=== PATIENT | male | born 1945 | race Caucasian/White ===

== ENCOUNTER → 2017-05-11 | Outpatient (CLI) | payer MEDICARE ==
--- NOTE | 2017-05-11 17:07 | Diagnostic Imaging Report ---
INDICATION: Asthma exacerbation. FINDINGS: The lung volumes are symmetric and unremarkable. No airway thickening or obvious bronchiectasis. No pneumonia, failure, effusion, or pneumothorax. IMPRESSION: No acute-appearing abnormality. Dictated by: Dictated on workstation # [id number]
== END ==
LOC: RAD 15:52
PROVIDERS: ATTEND Nurse Practitioner Family
DX: J45.21 Mild intermittent asthma with (acute) exacerbation (principal)
CPT/HCPCS: 71046

== ENCOUNTER → 2017-06-23 | Outpatient (CLI) | payer MEDICARE ==
--- NOTE | 2017-06-23 15:55 | Diagnostic Imaging Report ---
PROCEDURE: CT chest without contrast. TECHNIQUE: Multiple contiguous axial images were obtained through the chest without the use of intravenous contrast. INDICATION: Cough and wheezing and sputum production. COMPARISON: Correlation is made with chest radiograph from 05/11/2017. No prior CT chest is available for comparison. FINDINGS: No axillary lymphadenopathy is seen. Mildly prominent lymph nodes in the mediastinum are noted. A right paratracheal node measures 10 mm short axis. There is also prominent node in the subcarinal location with short axis measurement of 11 mm. No pericardial or pleural fluid is detected. Coronary arterial calcifications are present. Parenchymal evaluation does show the central airways to be patent. There are tree in bud opacities identified in the posterior aspect of the right upper lobe as well as a large portion of the right lower lobe. There appears to be minimal involvement of the superior segment of the left lower lobe as well as more inferiorly in the posterior left lower lobe. The upper abdomen is without evidence of adrenal mass. There are two cysts in the region of the pancreatic tail, largest 21 mm in diameter. IMPRESSION: 1. Bilateral tree in bud opacities, greatest on the right, likely on an infectious/inflammatory basis. Mildly prominent lymph nodes in the mediastinum are present as well which may be reactive. Followup after course of therapy could be performed to confirm resolution. 2. Pancreatic tail cyst. Dictated by: Dictated on workstation # [id number]
== END ==
LOC: RAD 11:25
PROVIDERS: ATTEND Family Medicine
DX: R91.8 Other nonspecific abnormal finding of lung field (principal); R59.0 Localized enlarged lymph nodes; K86.2 Cyst of pancreas
CPT/HCPCS: 71250

== ENCOUNTER 2017-07-02 20:57 | Inpatient (IN) | payer MEDICARE ==
[~2017-07-02] VITALS: Ht 185.4 cm; Wt 110.7 kg
[2017-07-02] MEDS ORDERED: RT-ALBUTEROL SULF 2.5 MG/3 ML PRE-MIX VIAL INH STA ×3 (21:02→21:45)
[2017-07-02] MEDS ORDERED: RT-ALBUTEROL/IPRATROPIUM 3 ML (DUONEB) VIAL INH ONE ×2 (21:15→21:45)
[2017-07-02 21:18] LABS: BASOPHILS # (AUTO) 0.1 10^3/uL (0.0-0.1); BASOPHILS % (AUTO) 0 % (0-10); EOSINOPHILS # (AUTO) 0.8 10^3/uL (0.0-0.3); EOSINOPHILS % (AUTO) 7 % (0-10); HEMATOCRIT 42 % (40-54); HEMOGLOBIN 14.2 G/DL (13.3-17.7); LYMPHOCYTES % (AUTO) 18 % (12-44); MEAN CORPUSCULAR HEMOGLOBIN 36 PG (25-34); MEAN CORPUSCULAR HGB CONC 34 G/DL (32-36); MEAN CORPUSCULAR VOLUME 105 FL (80-99); MEAN PLATELET VOLUME 10.5 FL (7.4-10.4); MONOCYTES # (AUTO) 0.9 X 10^3 (0.0-1.0); MONOCYTES % (AUTO) 8 % (0-12); NEUTROPHILS # (AUTO) 7.5 X 10^3 (1.8-7.8); NEUTROPHILS % (AUTO) 68 % (42-75); PLATELET COUNT 236 10^3/uL (130-400); RED BLOOD COUNT 3.95 10^6/uL (4.35-5.85); RED CELL DISTRIBUTION WIDTH 12.2 % (10.0-14.5); WHITE BLOOD COUNT 11.2 10^3/uL (4.3-11.0)
--- NOTE | 2017-07-02 21:21 | ED Respiratory ---
General Chief Complaint: Respiratory Problems Stated Complaint: CHEST PAIN Nursing Triage Note: PT PRESENTS TO ER WITH COMPLAINT OF SOA. STATES HE HAS BEEN HAVING BREATHING ISSUES FOR THE LAST TWO MONTHS, BUT HIS SOA WORSENED TONIGHT. STATES HE LAST TOOK A BREATHING TREATMENT AT 2PM Source: patient, family Exam Limitations: no limitations History of Present Illness Date Seen by Provider: Jul 02, 2017 Time Seen by Provider: 20:58 Initial Comments Here with complaint of shortness of air. States he's been having this problem for the last 2 months. Has been followed with Dr. Zee. He did take it treatment earlier today but the breathing is much worse. Had CT scan last week but is not sure what the results were. Denies nausea vomiting. Denies chest pain. States the breathing problem is worse today than it's ever been. Typically on oxygen but is noted to have low O2 saturation of 88 percent on room air on arrival. Worsens with any activity and better with rest. Timing/Duration: getting worse Severity: moderate, severe Prior Episodes/Possible Cause: occasional episodes Modifying Factors: Worse With Activity, Improves With Albuterol Nebulizer, Improves With Oxygen, Improves With Rest Associated Symptoms: No chest pain/soreness, cough, No fever/chills, No nasal congestion, shortness of breath, wheezing Allergies and Home Medications Allergies Coded Allergies: Penicillins (Verified Allergy, Unknown, 07/02/17) Patient Home Medication List Home Medication List Reviewed: Yes Constitutional: see HPI, No chills, No fever EENTM: No nose congestion, No throat pain Respiratory: cough, dyspnea on exertion, short of breath, wheezing Cardiovascular: No chest pain, No edema, No palpitations Gastrointestinal: No abdominal pain, loss of appetite, No nausea, No vomiting Genitourinary: no symptoms reported Musculoskeletal: no symptoms reported Skin: no symptoms reported Psychiatric/Neurological: No Symptoms Reported All Other Systems Reviewed Negative Unless Noted: Yes Past Owomyqp-Cidblc-Rwbegm Hx Patient Social History Alcohol Use: Denies Use Recreational Drug Use: No Smoking Status: Never a Smoker Recent Foreign Travel: No Contact w/Someone Who Travel: No Recent Infectious Disease Expo: No Recent Hopitalizations: No Immunizations Up To Date PED Vaccines UTD: Yes Seasonal Allergies Seasonal Allergies: No Surgeries History of Surgeries: Yes (DETACHED RETINA) Respiratory History of Respiratory Disorde: Yes Cardiovascular History of Cardiac Disorders: No Neurological History of Neurological Disord: No Genitourinary History of Genitourinary Disor: No Gastrointestinal History of Gastrointestinal Di: No Musculoskeletal History of Musculoskeletal Dis: No Endocrine History of Endocrine Disorders: No HEENT History of HEENT Disorders: Yes Cancer History of Cancer: No Psychosocial History of Psychiatric Problem: No Blood Transfusions History of Blood Disorders: No Reviewed Nursing Assessment Reviewed/Agree w Nursing PMH: Yes Family Medical History Significant Family History: No Pertinent Family Hx Physical Exam Vital Signs Vital Signs - First Documented 07/02/17 20:59 Temp 99.5 Pulse 103 Resp 20 B/P (MAP) 176/95 (122) Pulse Ox 89 O2 Delivery Room Air O2 Flow Rate 2.00 Capillary Refill : Less Than 3 Seconds General Appearance: WD/WN, no apparent distress HEENT: PERRL/EOMI, pharynx normal Neck: full range of motion, supple Respiratory: respiratory distress, accessory muscle use, wheezing, expiration, inspiration Cardiovascular: no murmur, tachycardia Gastrointestinal: non tender, soft Extremities: non-tender, normal inspection Neurologic/Psychiatric: alert, oriented x 3 Skin: normal color, warm/dry Focused Exam Evaluation Lactate Level Laboratory Tests 07/02/17 21:05: Lactic Acid Level 0.98 Lactic Acid Level Laboratory Tests Test 07/02/17 21:05 Lactic Acid Level 0.98 MMOL/L (0.50-2.00) Progress/Results/Core Measures Suspected Sepsis Recent Fever Within 48 Hours: No Infection Criteria Present: None New/Unexplained Altered Menta: No Sepsis Screen: No Definite Risk Sepsis Diagnosis: SIRS Temperature:99.5 Pulse: 103 Respiratory Rate: 20 Laboratory Tests 07/02/17 21:05: White Blood Count 11.2H Blood Pressure 176 /95 Mean: 122 Laboratory Tests 07/02/17 21:05: Lactic Acid Level 0.98 Laboratory Tests 07/02/17 21:05: Creatinine 0.90, Platelet Count 236, Total Bilirubin 0.4 Results/Orders Lab Results Laboratory Tests Test 07/02/17 21:05 Range/Units White Blood Count 11.2 H 4.3-11.0 10^3/uL Red Blood Count 3.95 L 4.35-5.85 10^6/uL Hemoglobin 14.2 13.3-17.7 G/DL Hematocrit 42 40-54 % Mean Corpuscular Volume 105 H 80-99 FL Mean Corpuscular Hemoglobin 36 H 25-34 PG Mean Corpuscular Hemoglobin Concent 34 32-36 G/DL Red Cell Distribution Width 12.2 10.0-14.5 % Platelet Count 236 130-400 10^3/uL Mean Platelet Volume 10.5 H 7.4-10.4 FL Neutrophils (%) (Auto) 68 42-75 % Lymphocytes (%) (Auto) 18 12-44 % Monocytes (%) (Auto) 8 0-12 % Eosinophils (%) (Auto) 7 0-10 % Basophils (%) (Auto) 0 0-10 % Neutrophils # (Auto) 7.5 1.8-7.8 X 10^3 Lymphocytes # (Auto) 2.0 1.0-4.0 X 10^3 Monocytes # (Auto) 0.9 0.0-1.0 X 10^3 Eosinophils # (Auto) 0.8 H 0.0-0.3 10^3/uL Basophils # (Auto) 0.1 0.0-0.1 10^3/uL D-Dimer 2.07 H 0.00-0.49 UG/ML Sodium Level 139 135-145 MMOL/L Potassium Level 3.7 3.6-5.0 MMOL/L Chloride Level 105 98-107 MMOL/L Carbon Dioxide Level 26 21-32 MMOL/L Anion Gap 8 5-14 MMOL/L Blood Urea Nitrogen 16 7-18 MG/DL Creatinine 0.90 0.60-1.30 MG/DL Estimat Glomerular Filtration Rate > 60 BUN/Creatinine Ratio 18 Glucose Level 117 H 70-105 MG/DL Lactic Acid Level 0.98 0.50-2.00 MMOL/L Calcium Level 9.5 8.5-10.1 MG/DL Magnesium Level 2.2 1.8-2.4 MG/DL Total Bilirubin 0.4 0.1-1.0 MG/DL Aspartate Amino Transf (AST/SGOT) 32 5-34 U/L Alanine Aminotransferase (ALT/SGPT) 25 0-55 U/L Alkaline Phosphatase 49 40-136 U/L Troponin I < 0.30 <0.30 NG/ML C-Reactive Protein High Sensitivity 0.79 H 0.00-0.50 MG/DL B-Type Natriuretic Peptide 35.4 <100.0 PG/ML Total Protein 7.1 6.4-8.2 GM/DL Albumin 4.3 3.2-4.5 GM/DL My Orders Orders - ESTIVEN CHENG MD Albuterol Pre-Mix Nebs (Rt) (Proventil (07/02/17 21:02) Albuterol/Ipra Inhalation Soln (Duoneb I (07/02/17 21:15) Svn Sm Volume Nebulizer Rt-Rfs (07/02/17 21:02) Svn Sm Volume Nebulizer Rt-Rfs (07/02/17 21:02) BNP (07/02/17 21:02) Cbc No Diff (07/02/17 21:02) Cbc With Automated Diff (07/02/17 21:02) Hs C Reactive Protein (07/02/17 21:02) Fibrin Degradation Products (07/02/17 21:02) Magnesium (07/02/17 21:02) Troponin I (07/02/17 21:02) Saline Lock/Iv-Start (07/02/17 21:02) Ekg Tracing (07/02/17 21:02) O2 (07/02/17 21:02) Monitor-Rhythm Ecg Trace Only (07/02/17 21:02) Chest 1 View, Ap/Pa Only (07/02/17 21:02) Lactic Acid Analyzer (07/02/17 21:04) Blood Culture (07/02/17 21:04) Albuterol Pre-Mix Nebs (Rt) (Proventil (07/02/17 21:32) Svn Sm Volume Nebulizer Rt-Rfs (07/02/17 21:32) Albuterol Pre-Mix Nebs (Rt) (Proventil (07/02/17 21:45) Albuterol/Ipra Inhalation Soln (Duoneb I (07/02/17 21:45) Svn Sm Volume Nebulizer Rt-Rfs (07/02/17 21:45) Svn Sm Volume Nebulizer Rt-Rfs (07/02/17 21:45) Comprehensive Metabolic Panel (07/02/17 21:46) Ct Angio Chest W (07/02/17 22:16) Iohexol Injection (Omnipaque 350 Mg/Ml 1 (07/02/17 23:30) Ns (Ivpb) (Sodium Chloride 0.9%) (07/02/17 23:30) Methylprednisolone Sod Succ (Solu-Medrol (07/02/17 23:31) Methylprednisolone Sod Succ (Solu-Medrol (07/02/17 23:29) Medications Given in ED Current Medications Medications Dose Ordered Sig/Ibis Route Start Time Stop Time Status Last Admin Dose Admin Albuterol/ Ipratropium 3 ml ONCE ONCE INH 07/02/17 21:15 07/02/17 21:16 DC 07/02/17 21:24 3 ML Albuterol/ Ipratropium 3 ml ONCE ONCE INH 07/02/17 21:45 07/02/17 21:46 DC 07/02/17 21:53 3 ML Iohexol 150 ml ONCE ONCE IV 07/02/17 23:30 07/02/17 23:31 DC 07/02/17 23:23 125 ML Sodium Chloride 250 ml ONCE ONCE IV 07/02/17 23:30 07/02/17 23:31 DC 07/02/17 23:23 80 ML Vital Signs/I&O Vital Sign - Last 12Hours 07/02/17 07/02/17 07/02/17 07/02/17 20:59 20:59 21:10 21:24 Temp 99.5 Pulse 103 Resp 20 B/P (MAP) 176/95 (122) Pulse Ox 89 93 95 96 O2 Delivery Room Air Nasal Cannula Nasal Cannula Nasal Cannula O2 Flow Rate 2.00 2.00 2.00 07/02/17 07/02/17 21:37 21:54 Pulse Ox 94 95 O2 Delivery Nasal Cannula Nasal Cannula O2 Flow Rate 2.00 2.00 Capillary Refill : Less Than 3 Seconds Blood Pressure Mean: 122 Progress Note : Progress Note Seen and evaluated. IV, labs, EKG and chest x-ray ordered. Duo neb ordered. Albuterol neb 2 ordered. Patient placed on O2 as oxygen saturation 88 percent on room air. Significant wheezes remained. Repeat albuterol ordered. I did review the CT scan from previous which is listed below for information purposes. Patient is not currently on steroids. He has completed Levaquin therapy and is currently on cephalexin. He does have appointment with broaching machine operator in [place] on July 12. Monitor patient. 2330: Patient receives continuous hour-long treatment and this did help. Solu-Medrol 125 mg IV ordered. I discussed the case with Dr. Castro and she accepts patient for admission. Patient and family agree with plan. ECG Initial ECG Impression Date: Jul 02, 2017 Initial ECG Impression Time: 21:00 Initial ECG Rate: 94 Initial ECG Rhythm: Normal Sinus Comment Sinus rhythm with normal axis. Nonspecific intraventricular conduction delay. No evidence of ST elevation MO. No previous available for comparison. Interpreted by me. Diagnostic Imaging Diagonstic Imaging: CT Plain Films/CT/US/NM/MRI: chest, abdomen Comments CT done last week for information purposes only and not ordered through the ER. NAME: JOVANNA LORENZO [facility] REC#: [id number] PT STATUS: REG CLI : 1945 PHYSICIAN: DELORIS ZEE MD ADMIT DATE: 06/23/17/RAD Signed Date of Exam: 06/23/17 CT CHEST WO PROCEDURE: CT chest without contrast. TECHNIQUE: Multiple contiguous axial images were obtained through the chest without the use of intravenous contrast. INDICATION: Cough and wheezing and sputum production. COMPARISON: Correlation is made with chest radiograph from 05/11/2017. No prior CT chest is available for comparison. FINDINGS: No axillary lymphadenopathy is seen. Mildly prominent lymph nodes in the mediastinum are noted. A right paratracheal node measures 10 mm short axis. There is also prominent node in the subcarinal location with short axis measurement of 11 mm. No pericardial or pleural fluid is detected. Coronary arterial calcifications are present. Parenchymal evaluation does show the central airways to be patent. There are tree in bud opacities identified in the posterior aspect of the right upper lobe as well as a large portion of the right lower lobe. There appears to be minimal involvement of the superior segment of the left lower lobe as well as more inferiorly in the posterior left lower lobe. The upper abdomen is without evidence of adrenal mass. There are two cysts in the region of the pancreatic tail, largest 21 mm in diameter. IMPRESSION: 1. Bilateral tree in bud opacities, greatest on the right, likely on an infectious/inflammatory basis. Mildly prominent lymph nodes in the mediastinum are present as well which may be reactive. Followup after course of therapy could be performed to confirm resolution. 2. Pancreatic tail cyst. Dictated by: Dictated on workstation # [id number] Dict: 06/23/17 1537 Trans: 06/23/17 1558 Interpreted by: KWASI CURRY MD Electronically signed by: KWASI CURRY MD 06/23/17 1558 Diagonstic Imaging: Xray Plain Films/CT/US/NM/MRI: chest Departure Communication (Admissions) Time/Spoke to Admitting Phy: 23:30 Impression Impression: Primary Impression: COPD with acute exacerbation Additional Impression: Hypoxia Disposition: 09 ADMITTED INPATIENT Condition: Stable Admissions Decision to Admit Reason: Admit from ER (General) Decision to Admit/Date: Jul 02, 2017 Time/Decision to Admit Time: 23:30 Departure-Patient Inst. Referrals: DELORIS ZEE MD (PCP/Family) Primary Care Physician ESTIVEN CHENG MD Jul 02, 2017 21:21
[2017-07-02 21:37] LABS: MAGNESIUM 2.2 MG/DL (1.8-2.4)
--- NOTE | 2017-07-02 21:49 | Diagnostic Imaging Report ---
EXAM: CHEST 1 VIEW, AP/PA ONLY INDICATION: Shortness of air. COMPARISON: Chest CT without contrast 06/23/2017. FINDINGS: Normal heart size and pulmonary vascularity. Persistent small nodular opacities in the lung bases. No new dense consolidation, pleural effusion or pneumothorax. No acute osseous findings. IMPRESSION: Allowing for differences in technique, there has been no substantial change in the small nodular opacities in both lung bases suspicious for an infectious or inflammatory process. Dictated by: Dictated on workstation # [id number]
[2017-07-02 22:09] LABS: ALANINE AMINOTRANSFERASE 25 U/L (0-55); ALBUMIN 4.3 GM/DL (3.2-4.5); ALKALINE PHOSPHATASE 49 U/L (40-136); BILIRUBIN,TOTAL 0.4 MG/DL (0.1-1.0); BUN/CREATININE RATIO 18; CALCIUM 9.5 MG/DL (8.5-10.1); CARBON DIOXIDE 26 MMOL/L (21-32); CHLORIDE 105 MMOL/L (98-107); GFR ESTIMATED > 60; GLUCOSE 117 MG/DL (70-105); POTASSIUM 3.7 MMOL/L (3.6-5.0); SODIUM 139 MMOL/L (135-145); TOTAL PROTEIN 7.1 GM/DL (6.4-8.2)
[2017-07-02] MEDS ORDERED: methylPREDNISolone 125 MG (Solu-MEDROL) VIAL ONE (23:29)
[2017-07-02] MEDS ORDERED: NS 250 ML (IVPB) BAG IV ONE (23:30)
[2017-07-02] MEDS ORDERED: IOHEXOL 350 MG/ML 150 ML (OMNIPAQUE 350) VIAL IV ONE (23:30)
[2017-07-02] MEDS ORDERED: methylPREDNISolone 125 MG (Solu-MEDROL) VIAL IV STA (23:31)
[2017-07-03] VITALS (8 sets, daily range): BP systolic 124–176; BP diastolic 63–103
[2017-07-03] MEDS ORDERED: RT-ALBUTEROL SULF 2.5 MG/3 ML PRE-MIX VIAL ONE (00:48)
[2017-07-03] MEDS ORDERED: NS IV 1000 ML 1,000 ML ONE (01:41)
[2017-07-03] MEDS ORDERED: CATHETER FLUSH 10 ML SYR IV PRN (03:00)
[2017-07-03] MEDS: NS IV 1000 ML 1,000 ML IV SCH ×2 (03:05→16:24)
[2017-07-03] MEDS: CATHETER FLUSH 10 ML SYR IV SCH ×3 (03:05→22:00)
[2017-07-03] MEDS ORDERED: RT-ALBUTEROL/IPRATROPIUM 3 ML (DUONEB) VIAL INH PRN (04:00)
[2017-07-03] MEDS ORDERED: ALBU18HF2 (04:43)
[2017-07-03] MEDS ORDERED: CEPH500C PO (04:43)
[2017-07-03] MEDS ORDERED: MONT10TA24 PO (04:43)
[2017-07-03] MEDS ORDERED: ENAL20TA PO (04:43)
[2017-07-03] MEDS: methylPREDNISolone 125 MG (Solu-MEDROL) VIAL IV SCH ×3 (05:31→18:08)
[2017-07-03 05:58] LABS: BASOPHILS % (AUTO) 0 % (0-10); EOSINOPHILS % (AUTO) 0 % (0-10); HEMATOCRIT 39 % (40-54); HEMOGLOBIN 13.2 G/DL (13.3-17.7); LYMPHOCYTES # (AUTO) 0.4 X 10^3 (1.0-4.0); LYMPHOCYTES % (AUTO) 5 % (12-44); MEAN CORPUSCULAR HEMOGLOBIN 36 PG (25-34); MEAN CORPUSCULAR HGB CONC 34 G/DL (32-36); MEAN CORPUSCULAR VOLUME 106 FL (80-99); MEAN PLATELET VOLUME 10.5 FL (7.4-10.4); MONOCYTES # (AUTO) 0.1 X 10^3 (0.0-1.0); MONOCYTES % (AUTO) 1 % (0-12); NEUTROPHILS # (AUTO) 8.7 X 10^3 (1.8-7.8); NEUTROPHILS % (AUTO) 94 % (42-75); PLATELET COUNT 220 10^3/uL (130-400); RED BLOOD COUNT 3.63 10^6/uL (4.35-5.85); RED CELL DISTRIBUTION WIDTH 12.2 % (10.0-14.5); WHITE BLOOD COUNT 9.2 10^3/uL (4.3-11.0)
[2017-07-03 06:14] LABS: BAND NEUTROPHILS 0 %; BASOPHILS % (MANUAL) 0 %; EOSINOPHILS % (MANUAL) 0 %; LYMPHOCYTES % (MANUAL) 4 %; MONOCYTES % (MANUAL) 1 %; NEUTROPHILS % (MANUAL) 95 %; RBC MORPH NORMAL
[2017-07-03 06:24] LABS: ALANINE AMINOTRANSFERASE 24 U/L (0-55); ALKALINE PHOSPHATASE 45 U/L (40-136); BILIRUBIN,TOTAL 0.3 MG/DL (0.1-1.0); BUN/CREATININE RATIO 17; CALCIUM 9.1 MG/DL (8.5-10.1); CARBON DIOXIDE 22 MMOL/L (21-32); CHLORIDE 107 MMOL/L (98-107); CREATININE SERUM 0.83 MG/DL (0.60-1.30); GFR ESTIMATED > 60; GLUCOSE 190 MG/DL (70-105); SODIUM 139 MMOL/L (135-145); TOTAL PROTEIN 6.6 GM/DL (6.4-8.2)
[2017-07-03] MEDS: RT-ALBUTEROL/IPRATROPIUM 3 ML (DUONEB) VIAL INH SCH ×5 (07:57→22:58)
--- NOTE | 2017-07-03 08:28 | Diagnostic Imaging Report ---
PROCEDURE: CT angiography of the chest with contrast. TECHNIQUE: Multiple contiguous axial images were obtained through the chest after uneventful bolus administration of intravenous contrast. Reconstructed CTA MIP acquisitions were also performed. INDICATION: Shortness breath, chest pain, pulmonary embolism COMPARISON: 06/23/2017 FINDINGS: The heart size is stable. Coronary artery disease is noted. The course and caliber of the aorta are unremarkable. There is some limitation of the pulmonary artery evaluation due to timing of the contrast bolus. No obvious central pulmonary embolism is seen. Previously described tree in bud opacities persist but have decreased significantly. There is no pneumothorax, consolidation or effusion. Osseous structures and upper abdominal solid organs are stable. IMPRESSION: 1. No central pulmonary embolism or acute area of pathology identified. 2. Persistent but decreased tree in bud opacities. No new infiltrate identified. Dictated by: Dictated on workstation # [id number]
--- NOTE | 2017-07-03 12:31 | History & Physical-Hospitalist ---
History of Present Illness HPI/Chief Complaint 72-year-old white male with a previous diagnosis of asthma presents with a 2 to three-week history of increased wheezing and shortness of breath and a cough productive of green brown sputum. He has been treated 3 times for an exacerbation of his asthma to include steroids and antibiotics. Each time he has relapsed within a week. He originally began to have trouble about 7 years ago and had seen Dr. Nithya montero for this. He notes that he has had orthopnea for 6 weeks. He had previously been walking 2 miles a day without any problems.. He has used an albuterol inhaler for some time but has not been on an inhaled steroid. In addition he's been on Singulair. Source: patient Exam Limitations: no limitations Date Seen 07/03/17 Time Seen by Provider: 11:45 Attending Physician Natalya Castro MD PCP Ryan Zee MD Referring Physician Date of Admission Jul 02, 2017 at 11:40 pm Home Medications & Allergies Home Medications Reviewed patient Home Medication Reconciliation performed by pharmacy medication reconciliations radioisotope technician and/or nursing. Patients Allergies have been reviewed. Allergies Allergies Coded Allergies Penicillins (Verified Allergy, Unknown, 07/02/17) Past Eqygzby-Oyhkjs-Kpszsh Hx Past Med/Social Hx: Reviewed Nursing Past Med/Soc Hx Patient Social History Marrital Status: Employed/Student: retired Alcohol Use: Denies Use Recreational Drug Use: No Smoking Status: Never a Smoker Physical Abuse Screen: No Sexual Abuse: No Recent Foreign Travel: No Contact w/other who traveled: No Recent Hopitalizations: No Recent Infectious Disease Expo: No Immunizations Up To Date Pediatric: Yes Date of Pneumonia Vaccine: May 05, 2015 Date of Influenza Vaccine: Jan 03, 2017 Seasonal Allergies Seasonal Allergies: No Past Medical History Respiratory: Asthma Currently Using CPAP: No Currently Using BIPAP: No Loss of Vision: Bilateral Hearing Impairment: Denies History of Blood Disorders: No Family History No Pertinent Family Hx, Asthma, Lung Disease Review of Systems Constitutional: see HPI EENTM: vision loss Respiratory: dyspnea on exertion, orthopnea, short of breath, wheezing Gastrointestinal: no symptoms reported Genitourinary: no symptoms reported Musculoskeletal: no symptoms reported Skin: no symptoms reported Psychiatric/Neurological: No Symptoms Reported Physical Exam Physical Exam Vital Signs Vital Signs - First Documented 07/02/17 20:59 Temp 99.5 Pulse 103 Resp 20 B/P (MAP) 176/95 (122) Pulse Ox 89 O2 Delivery Room Air O2 Flow Rate 2.00 Capillary Refill : Less Than 3 Seconds General Appearance: No Apparent Distress, WD/WN HEENT: Normal ENT Inspection, Pharynx Normal Neck: Full Range of Motion, Normal Inspection, Non Tender, Supple Respiratory: Rhonci, Wheezing Cardiovascular: Regular Rate, Rhythm, No Edema, No Gallop, No JVD, No Murmur, Normal Peripheral Pulses Gastrointestinal: Normal Bowel Sounds, No Organomegaly, No Pulsatile Mass, Non Tender, Soft Back: Normal Inspection, No CVA Tenderness, No Vertebral Tenderness Extremity: Normal Capillary Refill, Normal Inspection, Normal Range of Motion, Non Tender, No Calf Tenderness Neurologic/Psychiatric: Alert, Oriented x3, No Motor/Sensory Deficits, Normal Mood/Affect, cyber systems engineer II-XII Norm as Tested Skin: Normal Color, Warm/Dry Lymphatic: No Adenopathy Results Results/Procedures Labs Laboratory Tests 07/02/17 21:05 07/03/17 05:50 Patient resulted labs reviewed. 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
[2017-07-03] MEDS: ENOXAPARIN 40 MG/0.4 ML (LOVENOX) SYR SC SCH (12:45)
[2017-07-03] MEDS: cefTRIAXone INJECTION 1,000 MG in NS (IVPB) 100 ML IV SCH (13:43)
[2017-07-03] MEDS: RT-ADVAIR HFA 115/21 MCG PER PUFF IH SCH (19:08)
[2017-07-04] MEDS: methylPREDNISolone 125 MG (Solu-MEDROL) VIAL IV SCH ×5 (00:10→23:30)
[2017-07-04] MEDS: RT-ALBUTEROL/IPRATROPIUM 3 ML (DUONEB) VIAL INH SCH ×6 (02:44→22:49)
[2017-07-04 04:00] VITALS: BP 135/63
[2017-07-04] MEDS: CATHETER FLUSH 10 ML SYR IV SCH ×3 (04:56→23:30)
[2017-07-04] MEDS: NS IV 1000 ML 1,000 ML IV SCH (04:56)
[2017-07-04] MEDS: RT-ADVAIR HFA 115/21 MCG PER PUFF IH SCH ×2 (06:25→20:02)
[2017-07-04 08:00] VITALS: BP 168/68
[2017-07-04 12:00] VITALS: BP 142/62
[2017-07-04] MEDS: ENOXAPARIN 40 MG/0.4 ML (LOVENOX) SYR SC SCH (12:04)
[2017-07-04] MEDS ORDERED: AZITHROMYCIN INJECTION 500 MG in NS (IVPB) 250 ML IV SCH (13:00)
--- NOTE | 2017-07-04 13:26 | Progress Note-Hospitalist ---
Subjective HPI/CC On Admission Date Seen by Provider: Jul 04, 2017 Time Seen by Provider: 12:30 72-year-old white male with a previous diagnosis of asthma presents with a 2 to three-week history of increased wheezing and shortness of breath and a cough productive of green brown sputum. He has been treated 3 times for an exacerbation of his asthma to include steroids and antibiotics. Each time he has relapsed within a week. He originally began to have trouble about 7 years ago and had seen Dr. Nithya montero for this. He notes that he has had orthopnea for 6 weeks. He had previously been walking 2 miles a day without any problems.. He has used an albuterol inhaler for some time but has not been on an inhaled steroid. In addition he's been on Singulair. Subjective/Events-last exam Patient is feeling better but is not 100 percent yet. Reviewed his CT report with the patient and with his son and . We talked that there are no infiltrates or consolidations consistent necessarily with pneumonia but that there were opacities in the tree buds concerning for an infectious etiology that are improving Review of Systems Pulmonary: Dyspnea, Cough Focused Exam Evaluation Lactate Level Laboratory Tests 07/02/17 21:05: Lactic Acid Level 0.98 Objective Exam Vital Signs Vital Signs Date Time Temp Pulse Resp B/P (MAP) Pulse Ox O2 Delivery O2 Flow Rate FiO2 07/02/17 20:59 99.5 103 20 176/95 (122) 89 Room Air 07/02/17 20:59 2.00 Capillary Refill : Less Than 3 Seconds General Appearance: No Apparent Distress, WD/WN HEENT: PERRL/EOMI, TMs Normal, Normal ENT Inspection, Pharynx Normal Neck: Full Range of Motion, Normal Inspection, Non Tender, Supple Respiratory: Chest Non Tender, Normal Breath Sounds, No Accessory Muscle Use, No Respiratory Distress, Crackles, Rhonci Cardiovascular: Regular Rate, Rhythm, No Gallop, No JVD, No Murmur, Normal Peripheral Pulses Gastrointestinal: Normal Bowel Sounds, No Organomegaly, Soft Rectal: Deferred Back: Normal Inspection, No CVA Tenderness Extremity: Normal Inspection, Normal Range of Motion, Non Tender, No Calf Tenderness Neurologic/Psychiatric: Alert, Oriented x3, No Motor/Sensory Deficits Results/Procedures Lab Patient resulted labs reviewed. 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 Diagnosis/Problems Diagnosis/Problems (1) Hypertension Status: Chronic Qualifiers: Hypertension type: essential hypertension Qualified Codes: I10 - Essential (primary) hypertension (2) Hypoxia Status: Acute (3) COPD with acute exacerbation Status: Acute (4) Detached retina, bilateral Clinical Quality Measures DVT/VTE Risk/Contraindication: Risk Factor Score Per Nursin RFS Level Per Nursing on Admit: 4+=Very High TRACEY LIMON MD Jul 04, 2017 13:26
[2017-07-04] MEDS ORDERED: RT-ALBUINH IH ×2 (14:01→15:02)
[2017-07-04] MEDS: cefTRIAXone INJECTION 1,000 MG in NS (IVPB) 100 ML IV SCH (14:25)
[2017-07-04] MEDS ORDERED: FLUT9.9S NSEACH (15:02)
[2017-07-04] MEDS ORDERED: FLUT16SP22 NSEACH (15:11)
[2017-07-04 15:15] VITALS: BP 133/68
[2017-07-04 19:40] VITALS: BP 141/66
[2017-07-05] VITALS: BP 148/69
[2017-07-05] MEDS: RT-ALBUTEROL/IPRATROPIUM 3 ML (DUONEB) VIAL INH SCH ×4 (02:51→15:32)
[2017-07-05 04:00] VITALS: BP 148/75
[2017-07-05] MEDS: methylPREDNISolone 125 MG (Solu-MEDROL) VIAL IV SCH (05:26)
[2017-07-05] MEDS: CATHETER FLUSH 10 ML SYR IV SCH ×2 (05:26→13:00)
[2017-07-05] MEDS: RT-ADVAIR HFA 115/21 MCG PER PUFF IH SCH (06:52)
[2017-07-05 08:00] VITALS: BP 142/69
[2017-07-05] MEDS ORDERED: predniSONE 20 MG TAB PO SCH (09:00)
[2017-07-05] MEDS ORDERED: AZITHROMYCIN 250 MG TAB (ZITHROMAX) PO SCH (09:00)
[2017-07-05 12:00] VITALS: BP 146/68
[2017-07-05] MEDS ORDERED: FLUT12AE4 IH (12:44)
[2017-07-05] MEDS ORDERED: CEPH-507 PO (12:44)
[2017-07-05] MEDS ORDERED: AZIT250T12 PO (12:44)
[2017-07-05] MEDS ORDERED: PRED10TA22 PO (12:44)
[2017-07-05] MEDS: ENOXAPARIN 40 MG/0.4 ML (LOVENOX) SYR SC SCH (12:57)
[2017-07-05] MEDS: cefTRIAXone INJECTION 1,000 MG in NS (IVPB) 100 ML IV SCH (13:00)
--- NOTE | 2017-07-05 15:48 | Discharge Inst-Simple/Standard ---
Discharge Inst-Standard Discharge Medications New, Converted or Re-Newed RX: Call to Patients Pharmacy Patient Instructions/Follow Up Plan of Care/Instructions/FU: Please continue to take your medications as written. Please follow up with [facility] on 07/12 [address] scheduled [address] with Dr Zee in the next 1-2 weeks. If your symptoms return or worsen please return for evaluation. Activity as Tolerated: Yes Discharge Diet: Cardiac Diet TREY KELLOGG MD Jul 05, 2017 15:48
--- NOTE | 2017-07-05 15:58 | Discharge Summary-Hospitalist ---
Diagnosis/Chief Complaint Date of Admission Jul 02, 2017 at 23:40 Date of Discharge Discharge Date: Jul 05, 2017 Admission Diagnosis Exacerbation of asthma with hypoxia and orthopnea Discharge Diagnosis (1) Hypertension Status: Chronic (2) Hypoxia Status: Acute (3) COPD with acute exacerbation Status: Acute (4) Detached retina, bilateral Discharge Summary Discharge Physical Exam Allergies: Coded Allergies: Penicillins (Verified Allergy, Unknown, 07/02/17) Vitals & I&Os Vital Signs Date Time Temp Pulse Resp B/P (MAP) Pulse Ox O2 Delivery O2 Flow Rate FiO2 07/05/17 17:20 85 20 159/74 93 Room Air 2.00 07/05/17 16:05 99.1 General Appearance: Alert, Oriented X3 Respiratory: Clear to Auscultation Cardiovascular: Regular Rate Psych/Mental Status: Mental Status NL Hospital Course Pt was admitted for acute exacerbation of COPD and respiratory distress. He was treated with DuoNebs, steroids, and antibiotics and responded well. On day of discharge he was doing well and requesting discharge. He is to complete a 5 day course of antibiotics for CAP and a steroid taper. He has a follow up appointment with [facility] pulmonology on 07/12. He and his family were comfortable with plan to DC home. He underwent home oxygen qualification testing and needed oxygen with exertional. This was arranged prior to DC. Labs (last 24 hrs) Microbiology 07/02/17 Blood Culture - Preliminary, Resulted No growth Patient resulted labs reviewed. Imaging: Reviewed Imaging Report Discussion & Recommendations Discharge Planning: >30 minutes discharge planning Discharge Home Medications: Active Scripts Active Keflex (Cephalexin) 500 Mg Capsule 500 Mg PO BID 4 Days Prednisone 10 Mg Tab.ds.pk 10 Mg PO DAILY Take 6 tabs(60mg)daily,decrease by 1 tab(10MG)daily. Advair Hfa 115-21 Mcg Inhaler (Fluticasone/Salmeterol) 12 Gm Hfa.aer.ad 2 Puff IH BID@08,20 Azithromycin 250 Mg Tablet 250 Mg PO DAILY Reported Fluticasone Propionate 16 Gm [place].susp 1 [place] NSEACH BID Ventolin Hfa (Albuterol Sulfate) 1 Puff Puff 2 Puff IH Q4H PRN 1 PUFF = 90 MCG Montelukast Sodium 10 Mg Tablet 10 Mg PO HS Enalapril Maleate 20 Mg Tablet 20 Mg PO DAILY Instructions to patient/family Please see electronic discharge instructions given to patient. Clinical Quality Measures DVT/VTE Risk/Contraindication: Risk Factor Score Per Nursin RFS Level Per Nursing on Admit: 4+=Very High Copy Copies To 1: DELORIS FONSECA MD Problem Qualifiers (1) Hypertension: Hypertension type: essential hypertension Qualified Codes: I10 - Essential ( primary) hypertension TREY KELLOGG MD Jul 05, 2017 15:58
[2017-07-05 16:05] VITALS: BP 159/74
[2017-07-05 17:20] VITALS: BP 159/74
== END 2017-07-05 17:20 | disposition home or self-care (01) | DRG 190 ==
LOC: EDUNIT# 20:57 → ER 20:59 → 4TH 23:40
PROVIDERS: ADMIT Internal Medicine; ATTEND Internal Medicine
DX: J44.1 Chronic obstructive pulmonary disease with (acute) exacerbation (principal); J44.0 Chronic obstructive pulmonary disease with (acute) lower respiratory infection; J18.9 Pneumonia, unspecified organism; R09.02 Hypoxemia; I10 Essential (primary) hypertension; H33.23 Serous retinal detachment, bilateral; H54.3 Unqualified visual loss, both eyes; R73.9 Hyperglycemia, unspecified; T38.0X5A Adverse effect of glucocorticoids and synthetic analogues, initial encounter
CPT/HCPCS: 36415; 71045; 71275; 80053; 83605; 83735; 83880; 84484; 85007; 85025; 85027; 85379; 86141; 87040; 93005; 93041; 94640; 94664; 94760; 94761; 96374

== ENCOUNTER → 2018-05-02 | Outpatient (CLI) | payer MEDICARE ==
[~2018-05-02] MED LIST: ALBU18HF2; AZIT250T12 PO; CEPH-507 PO; CEPH500C PO; ENAL20TA PO; FLUT12AE4 IH; FLUT16SP22 NSEACH; FLUT9.9S NSEACH; MONT10TA24 PO; PRED10TA22 PO; RT-ALBUINH IH
--- NOTE | 2018-05-02 10:21 | Diagnostic Imaging Report ---
PROCEDURE: CT sinuses without contrast TECHNIQUE: Multiple contiguous axial images were obtained through the sinuses without the use of intravenous contrast. Coronal and sagittal reformations were then performed. INDICATION: Chronic sinusitis. COMPARISON: There are no prior studies available for comparison. FINDINGS: There is near-complete opacification of the ethmoid sinuses by mucosal thickening. There is also considerable opacification of both maxillary antra. This may be related to mucosal thickening, fluid and/or retention cyst. The left sphenoid sinus is also nearly completely opacified by mucosal thickening. The right sphenoid sinus is clear. There is also considerable mucosal thickening of the frontal sinuses. The nasal septum is slightly deviated to the right. The bone windows show no evidence for a fracture or for a destructive lesion. The orbits are symmetrical and within normal limits. The intracranial contents, where visualized are unremarkable. IMPRESSION: There is severe pansinusitis. Dictated by: Dictated on workstation # [id number]
== END ==
LOC: RAD 08:34
PROVIDERS: ATTEND Otolaryngology Otolaryngology/Facial Plastic Surgery
DX: J32.4 Chronic pansinusitis (principal)
CPT/HCPCS: 70486

== ENCOUNTER 2018-05-11 14:47 | Emergency (ER) | payer MEDICARE ==
[~2018-05-11] VITALS: Ht 185.4 cm; Wt 108.9 kg
--- NOTE | 2018-05-11 15:00 | NUR ---
Augustin garcia in [facility] - 05/11/18 at 1504 by RICO PT NOT IN HER ROOM ANYMORE ET NOT IN THE BATHROOMS.
--- NOTE | 2018-05-11 15:52 | Diagnostic Imaging Report ---
PROCEDURE: CT head wo r/o stroke. TECHNIQUE: Multiple contiguous axial images were obtained through the brain without the use of intravenous contrast. INDICATION: Right facial droop. FINDINGS: There is no intracerebral hemorrhage. No sulcal effacement. No findings of focal or generalized cerebral edema. The basilar cisterns are patent. There is no evidence for an elevation of the intracranial pressures. Orbits and calvarium are unremarkable. There is severe paranasal sinus disease with complete opacification of the majority of the ethmoid air cells, near complete opacification of the sphenoid sinuses and right frontal sinus, as well as opacification of the partially visualized maxillary sinuses. No mastoid effusion. Middle ear cavities unremarkable. The calvarium is unremarkable. IMPRESSION: No hemorrhage, edema, or acute intracerebral pathology. Severe paranasal sinus disease. Dictated by: Dictated on workstation # [id number]
--- NOTE | 2018-05-11 16:01 | ED Neurological Problem ---
General Chief Complaint: Neuro-Stroke Like Symptoms Stated Complaint: FACIAL DROOP Nursing Triage Note: AMBULATED TO ROOM 08 WITHOUT DIFFICULTY. 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 Nursing Sepsis Screen: No Definite Risk History of Present Illness Date Seen by Provider: May 11, 2018 Time Seen by Provider: 14:45 Initial Comments 73 -year-old male ambulated to exam room 8 with no difficulty and steady gait. After eating lunch today he noticed swelling and trace drooping around the right edge of his mouth. On admission, he feels the droop has improved but there may be some swelling. He denies change in sensation to his face or lips. He denies eating anything new/different. No food allergies. He does report having a mild cold over the last few weeks, he was evaluated by Dr. Traylor and found to have polyps. He finished a course of prednisone approximately 2 weeks ago. And has follow-up with Dr. Traylor later this week. Timing/Duration: 1/2 hour Associated Symptoms: denies symptoms Allergies and Home Medications Allergies Coded Allergies: Penicillins (Verified Allergy, Unknown, 07/02/17) Home Medications Albuterol Sulfate 1 Puff Puff, 2 PUFF IH Q4H PRN for SHORTNESS OF BREATH, ( Reported) 1 PUFF = 90 MCG Enalapril Maleate 20 Mg Tablet, 20 MG PO DAILY, (Reported) Fluticasone Propionate 16 Gm [place].susp, 1 SPRAY NSEACH BID, (Reported) Fluticasone/Salmeterol 12 Gm Hfa.aer.ad, 2 PUFF IH BID@08,20 Prescribed by: TREY KELLOGG on 07/05/17 1244 Montelukast Sodium 10 Mg Tablet, 10 MG PO HS, (Reported) Prednisone 20 Mg Tab, 60 MG PO DAILY Prescribed by: ANSON HARRISON on 05/11/18 1617 Patient Home Medication List Home Medication List Reviewed: Yes Review of Systems Review of Systems Constitutional: no symptoms reported, see HPI Psychiatric/Neurological: See HPI, Weakness (trace right cheek) All Other Systems Reviewed Negative Unless Noted: Yes Past Lphtoqs-June[place]cbunn Hx Past Med/Social Hx: Reviewed Nursing Past Med/Soc Hx Patient Social History Alcohol Use: Occasionally Uses Recreational Drug Use: No Smoking Status: Never a Smoker Recent Foreign Travel: No Contact w/Someone Who Travel: No Recent Infectious Disease Expo: No Recent Hopitalizations: No Immunizations Up To Date PED Vaccines UTD: Yes Date of Pneumonia Vaccine: May 05, 2015 Date of Influenza Vaccine: Jan 03, 2017 Seasonal Allergies Seasonal Allergies: No Past Medical History Surgeries: Yes (DETACHED RETINA) Respiratory: Yes Currently Using CPAP: No Currently Using BIPAP: No Cardiac: No Neurological: No Genitourinary: No Gastrointestinal: No Musculoskeletal: No Endocrine: No HEENT: Yes (DETACHED RETINA) Loss of Vision: Bilateral Hearing Impairment: Denies Cancer: No Psychosocial: No Integumentary: No Blood Disorders: No Family Medical History No Pertinent Family Hx, Asthma, Lung Disease Physical Exam Vital Signs Vital Signs - First Documented 05/11/18 14:47 Temp 98.0 Pulse 104 Resp 16 B/P (MAP) 166/91 (116) Pulse Ox 96 O2 Delivery Room Air Capillary Refill : Less Than 3 Seconds Height, Weight, BMI Height: 6'1.00" Weight: 240lbs. 1.0oz. 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 With progressive talking, there is a trace droop on the right corner. Stroke Onset of Symptoms Date of Onset of Symptoms: May 11, 2018 Time of Symptom Onset: 14:00 Onset of Symptoms: Yes NIH Stroke Scale Assessment Level of Consciousness: 0=Alert (0), Level of Consciousness-Questions: 0= Answers both month/age (0), LOC Commands: 0=Performs both tasks (0), Visual Bowles: 0=No visual loss (0), Facial Movement (Facial Paresis): 0=Normal symmetrical mnt (0), Motor Function-Arms Right: 0=No drift (0), Motor Function- Arms Left: 0=No drift (0), Motor Function-Legs Right: 0=No drift (0), Motor Function-Legs Left: 0=No drift (0), Limb Ataxia: 0=Absent (0), Sensory: 0=Normal :no loss (0), Best Language: 0=No aphasia (0), Dysarthria: 0=Normal (0), Extinction & Inattention: 0=No abnormality (0), Total: 0 Progress/Results/Core Measures Results/Orders My Orders Orders - ANSON HARRISON Ct Head Wo-R/O Stroke (05/11/18 15:20) Vital Signs/I&O 05/11/18 05/11/18 14:47 16:38 Temp 98.0 98.0 Pulse 104 90 Resp 16 16 B/P (MAP) 166/91 (116) 155/88 (110) Pulse Ox 96 96 O2 Delivery Room Air Room Air Blood Pressure Mean: 116 Progress Progress Note : Time: 14:45 Progress Note Initial assessment completed, discussed assessment findings with Dr. Can. He agreed with plan of care. Will obtain CT head. 1515 CT head had no acute findings. Results reviewed with the patient. His neurovascular status has not changed. NIH score continues to be 0. 1535 Contacted Stroke Line for consult. Awaiting return call [address] Hickman from Stroke line. [place] it could be Day's Palsy but did not see any indication for further stroke work up. 1620 discharge instructions and return precautions reviewed with the patient. All questions answered. Diagnostic Imaging Diagonstic Imaging: CT Plain Films/CT/US/NM/MRI: head Comments NAME: JOVANNA LORENZO [facility] REC#: [id number] PT STATUS: REG ER : 1945 PHYSICIAN: ANSON HARRISON ADMIT DATE: 05/11/18/ER Draft Date of Exam:05/11/18 CT HEAD WO-R/O STROKE PROCEDURE: CT head wo r/o stroke. TECHNIQUE: Multiple contiguous axial images were obtained through the brain without the use of intravenous contrast. INDICATION: Right facial droop. FINDINGS: There is no intracerebral hemorrhage. No sulcal effacement. No findings of focal or generalized cerebral edema. The basilar cisterns are patent. There is no evidence for an elevation of the intracranial pressures. Orbits and calvarium are unremarkable. There is severe paranasal sinus disease with complete opacification of the majority of the ethmoid air cells, near complete opacification of the sphenoid sinuses and right frontal sinus, as well as opacification of the partially visualized maxillary sinuses. No mastoid effusion. Middle ear cavities unremarkable. The calvarium is unremarkable. IMPRESSION: No hemorrhage, edema, or acute intracerebral pathology. Severe paranasal sinus disease. Dictated on workstation # [id number] Dict: 05/11/18 1537 Trans: 05/11/18 1551 [id number] Interpreted by: BRENNA SANTACRUZ Electronically signed by: Reviewed: Reviewed by Me Departure Impression Primary Impression: Day's palsy Additional Impression: Nasal polyp Disposition: 01 HOME, SELF-CARE Condition: Improved Departure-Patient Inst. Decision time for Depature: 16:15 Referrals: DELORIS FONSECA MD (PCP/Family) Primary Care Physician Patient Instructions: Day's Palsy (DC) Add. Discharge Instructions: Activity as tolerated. Take Prednisone as prescribed. If right eye isn't closing fully, you will want to use re-wetting drops every 2- 4 hours. Follow up with your primary care provider in 2-3 days if symptoms worsen or do not improve. Keep your scheduled appointment Dr. Traylor for later this week. Return to the emergency department for progressive weakness on the right side, difficulty articulating words, memory impairment, seizure activity, or new problems. All discharge instructions reviewed with patient and/or family. Voiced understanding. Scripts Prednisone (Prednisone) 20 Mg Tab 60 MG PO DAILY for 7 Days, #21 TAB 0 Refills Prov: ANSON HARRISON 05/11/18 Copy Copies To 1: DELORIS FONSECA MD Copies To 2: FRDEIS TRAYLOR MD, AMY ARNP May 11, 2018 16:01
[2018-05-11] MEDS ORDERED: PRD20T PO (16:17)
[2018-05-11 16:38] VITALS: BP 155/88
== END 2018-05-11 16:38 | disposition home or self-care (01) ==
LOC: EDUNIT# 14:47 → ER 14:48
DX: G51.0 Bell's palsy (principal); J33.9 Nasal polyp, unspecified; Z88.0 Allergy status to penicillin; Z79.51 Long term (current) use of inhaled steroids; Z86.010 Personal history of colon polyps
CPT/HCPCS: 70450

== ENCOUNTER 2018-05-23 12:41 | Outpatient (CLI) | payer MEDICARE ==
[~2018-05-23] VITALS: Ht 185.4 cm; Wt 114.8 kg
[2018-05-23 13:08] VITALS: BP 158/84
[2018-05-23 13:55] LABS: BASOPHILS % (AUTO) 0 % (0-10); EOSINOPHILS % (AUTO) 0 % (0-10); HEMATOCRIT 43 % (40-54); HEMOGLOBIN 14.4 G/DL (13.3-17.7); LYMPHOCYTES % (AUTO) 11 % (12-44); MEAN CORPUSCULAR HEMOGLOBIN 35 PG (25-34); MEAN CORPUSCULAR HGB CONC 33 G/DL (32-36); MEAN CORPUSCULAR VOLUME 106 FL (80-99); MEAN PLATELET VOLUME 11.2 FL (7.4-10.4); MONOCYTES % (AUTO) 10 % (0-12); NEUTROPHILS # (AUTO) 7.4 X 10^3 (1.8-7.8); NEUTROPHILS % (AUTO) 79 % (42-75); PLATELET COUNT 201 10^3/uL (130-400); RED CELL DISTRIBUTION WIDTH 11.9 % (10.0-14.5); WHITE BLOOD COUNT 9.4 10^3/uL (4.3-11.0)
[2018-05-23 14:14] LABS: BUN/CREATININE RATIO 22; CALCIUM 9.8 MG/DL (8.5-10.1); CARBON DIOXIDE 24 MMOL/L (21-32); CHLORIDE 102 MMOL/L (98-107); CREATININE SERUM 0.94 MG/DL (0.60-1.30); GFR ESTIMATED > 60; GLUCOSE 175 MG/DL (70-105); POTASSIUM 4.8 MMOL/L (3.6-5.0); SODIUM 136 MMOL/L (135-145)
--- NOTE | 2018-05-23 14:37 | Diagnostic Imaging Report ---
INDICATION: Preop for sinus surgery. TIME OF EXAM: 1:35 p.m. COMPARISON: Correlation is made with prior study from 07/02/2017. FINDINGS: The heart size is normal. The pulmonary vascularity is unremarkable. The lungs are clear. No infiltrate, effusion or pneumothorax is detected. IMPRESSION: No acute cardiopulmonary process is detected. Dictated by: Dictated on workstation # [id number]
== END 2018-05-23 15:12 | disposition home or self-care (01) ==
LOC: PREOP 12:41
PROVIDERS: ATTEND Otolaryngology Otolaryngology/Facial Plastic Surgery
DX: Z01.810 Encounter for preprocedural cardiovascular examination (principal); Z01.811 Encounter for preprocedural respiratory examination; Z01.812 Encounter for preprocedural laboratory examination; Z11.2 Encounter for screening for other bacterial diseases; J32.4 Chronic pansinusitis; J33.8 Other polyp of sinus; J34.2 Deviated nasal septum; J34.3 Hypertrophy of nasal turbinates
CPT/HCPCS: 36415; 71046; 80048; 85025; 87081

== ENCOUNTER 2018-05-26 07:48 | Day surgery (SDC) | payer MEDICARE ==
[~2018-05-26] VITALS: Ht 185.4 cm; Wt 114.8 kg
[~2018-05-26 07:48] MED LIST changes: +PRD20T PO
[2018-05-26 08:10] VITALS: BP 163/87
[2018-05-26] MEDS ORDERED: HYDROCORTISONE 100 MG/2 ML (Solu-CORTEF) VIAL ONE (08:19)
[2018-05-26] MEDS ORDERED: LEVOFLOXACIN 500 MG/100 ML IV 100 ML ONE (08:20)
[2018-05-26] MEDS ORDERED: HYDROCORTISONE 100 MG/2 ML (Solu-CORTEF) VIAL IV ONE (08:30)
[2018-05-26] MEDS ORDERED: LEVOFLOXACIN 500 MG/100 ML IV 100 ML IV ONE (08:30)
[2018-05-26] MEDS: LACTATED RINGERS 1,000 ML IV PRN ×2 (08:37→11:44)
[2018-05-26] MEDS ORDERED: BSS 15 ML ONE (08:49)
[2018-05-26] MEDS ORDERED: COCAINE HCL 4% 2 ML SYR ONE (08:49)
[2018-05-26] MEDS ORDERED: LIDOCAINE/EPI 1%-1:100,000 (XYLOCAINE) 20ML ONE (08:50)
[2018-05-26] MEDS ORDERED: PHENYLEPHRINE 0.5% NASAL SPR (NEO-SYNEPHRINE) REG ONE (08:50)
[2018-05-26] MEDS ORDERED: CATHETER FLUSH 10 ML SYR IV PRN (09:00)
[2018-05-26] MEDS ORDERED: LIDOCAINE PF 2% 5 ML (XYLOCAINE) VIAL ONE (09:15)
[2018-05-26] MEDS ORDERED: SEVOFLURANE (ULTANE) 15 ML INHAL SOLN ONE (09:15)
[2018-05-26] MEDS ORDERED: ROCURONIUM 10 MG/ML 5 ML SYRINGE IV ONE (09:15)
[2018-05-26] MEDS ORDERED: ONDANSETRON 4 MG/2 ML (SDV) Z0FRAN ONE (09:15)
[2018-05-26] MEDS ORDERED: DEXAMETHASONE 10 MG/ML (DECADRON) 1 ML VIAL ONE (09:15)
[2018-05-26] MEDS ORDERED: proPOfol 200 MG/20 ML (DIPRIVAN) VIAL IV ONE (09:15)
[2018-05-26] MEDS ORDERED: MIDAZOLAM 2 MG/2 ML (VERSED) VIAL ONE (09:15)
[2018-05-26] MEDS ORDERED: NEOSTIGMINE 1 MG/ML 5 ML SYRINGE ONE ×2 (09:15→11:47)
[2018-05-26] MEDS ORDERED: fentaNYL INJECTION 100 MCG/2 ML AMP ONE ×2 (09:15→11:34)
[2018-05-26] MEDS ORDERED: GLYCOPYRROLATE 0.2 MG/ML (ROBINUL) 2 ML VIAL ONE ×2 (09:15→11:47)
--- NOTE | 2018-05-26 10:25 | Progress Note-Pre Operative ---
Pre-Operative Progress Note H&P Reviewed The H&P was reviewed, patient examined and no changes noted. Date Seen by Provider: May 26, 2018 Time Seen by Provider: 10:15 Date H&P Reviewed: May 26, 2018 Time H&P Reviewed: 10:15 Pre-Operative Diagnosis: Bilat Chronic Sinusitis with Nasal Polyps FREDIS HOLLEY MD May 26, 2018 10:25
[2018-05-26] MEDS ORDERED: morphine INJ 10 MG/ML 1ML (SYR OR VIAL) IVP ONE (10:45)
[2018-05-26] MEDS ORDERED: ONDANSETRON 4 MG/2 ML (SDV) Z0FRAN IVP PRN (10:45)
[2018-05-26] MEDS ORDERED: D5 1/2 NS W/KCL 20 MEQ/L 1,000 ML IV SCH (11:55)
--- NOTE | 2018-05-26 11:55 | Progress Note-Post Operative ---
Post-Operative Progess Note Surgeon (s)/Tobacco Scrap Sifter (s) Surgeon FREDIS HOLLEY MD Tobacco Scrap Sifter n/a Pre-Operative Diagnosis Bilat Chronic Sinusitis with Nasal Polyps Post-Operative Diagnosis same Post-Op Procedure Note Date of Procedure: May 26, 2018 Name of Procedure Performed: Bilast ESS, Bilat Red Of Inf Turbs Description & Findings Description and Findings: n/a Anesthesia Type get Estimated Blood Loss minimal Packing none. Specimen(s) collected/removed bilat chronic sinus disease FREDIS HOLLEY MD May 26, 2018 11:55
[2018-05-26] MEDS ORDERED: HYDROcodone/APAP 5 MG/325 MG (LORTAB) TAB PO PRN (12:00)
[2018-05-26] MEDS ORDERED: ACETAMINOPHEN 325 MG TABLET PO PRN (12:00)
[2018-05-26] MEDS ORDERED: PROMETHAZINE INJ 25 MG/ML (PHENERGAN) AMP IVP PRN (12:00)
[2018-05-26] MEDS ORDERED: predniSONE 20 MG TAB PO ONE (12:00)
[2018-05-26] MEDS ORDERED: LABETALOL HCL 20 MG/4 ML VIAL ONE (12:01)
[2018-05-26] MEDS ORDERED: LABETALOL HCL 20 MG/4 ML VIAL IV PRN (12:15)
[2018-05-26 12:55] VITALS: BP 161/90
[2018-05-26] MEDS ORDERED: LEVO500T2 PO (13:14)
[2018-05-26] MEDS ORDERED: HYDR-3812 PO (13:14)
[2018-05-26] MEDS ORDERED: PRD20T PO (13:14)
[2018-05-26 13:25] VITALS: BP 165/93
[2018-05-26 13:55] VITALS: BP 149/85
--- NOTE | 2018-05-26 16:08 | Anesthesia-General Post-Op ---
General Patient Condition Mental Status/LOC: Same as Preop Cardiovascular: Satisfactory Nausea/Vomiting: Absent Respiratory: Satisfactory Pain: Controlled Complications: Absent Post Op Complications Complications None Follow Up Care/Instructions Patient Instructions None needed. Anesthesia/Patient Condition Patient Condition Patient was seen after the procedure and he was doing well, no complaints, stable vital signs, no apparent adverse anesthesia problems. He did have some transient hypertension in PACU, better with labetalol and continued to be improved in SDC. RUDI LITTLE DO May 26, 2018 16:08
== END 2018-05-26 14:15 | disposition home or self-care (01) ==
LOC: SDC 07:48
PROVIDERS: ATTEND Otolaryngology Otolaryngology/Facial Plastic Surgery
DX: J32.2 Chronic ethmoidal sinusitis (principal); J32.1 Chronic frontal sinusitis; J32.0 Chronic maxillary sinusitis; J34.3 Hypertrophy of nasal turbinates; I10 Essential (primary) hypertension; J45.909 Unspecified asthma, uncomplicated; E66.9 Obesity, unspecified; Z68.33 Body mass index [BMI] 33.0-33.9, adult; Z79.899 Other long term (current) drug therapy

== ENCOUNTER → 2018-09-20 | Outpatient (CLI) | payer MEDICARE ==
[~2018-09-20] MED LIST changes: +HYDR-3812 PO; +LEVO500T2 PO
--- NOTE | 2018-09-20 12:38 | Diagnostic Imaging Report ---
PROCEDURE: US left lower extremity venous. TECHNIQUE: Multiple Real-time grayscale images were obtained over the left lower extremity in various projections. Additional duplex Doppler and color Doppler images were also obtained. DATE: September 20, 2018. INDICATION: 73-year-old male, left leg pain and swelling. Evaluation for deep venous thrombosis. COMPARISON: None. FINDINGS: The left common femoral vein, left superficial femoral vein, and left popliteal vein appear to be compressible with normal flow and response to augmentation. The visualized portions of the left greater saphenous vein and deep femoral vein are patent. The left posterior tibial and peroneal veins appear patent. IMPRESSION: Negative for left lower extremity deep venous thrombosis. Dictated by: Dictated on workstation # [id number]
== END ==
LOC: RAD 10:05
PROVIDERS: ATTEND Orthopaedic Surgery
DX: M79.89 Other specified soft tissue disorders (principal)

== ENCOUNTER 2022-05-16 01:11 | Inpatient (IN) | payer MEDICARE ==
[~2022-05-16] VITALS: Ht 185 cm; Wt 105.0 kg
[~2022-05-16 01:11] MED LIST changes: +ACHD5005 PO; +ALBU8.5H6 IH; -ENAL20TA PO; +ENAL20TA16 PO; -HYDR-3812 PO; +MONT-40 PO; -MONT10TA24 PO
[2022-05-16] MEDS ORDERED: RT-ALBUTEROL SULF 2.5 MG/3 ML PRE-MIX VIAL INH STA (01:26)
[2022-05-16] MEDS ORDERED: methylPREDNISolone 125 MG (Solu-MEDROL) VIAL IV STA (01:26)
[2022-05-16] MEDS ORDERED: RT-ALBUTEROL/IPRATROPIUM 3 ML (DUONEB) VIAL INH ONE (01:30)
[2022-05-16] MEDS ORDERED: cefTRIAXone 1 GM PRE-MIX 50 ML IV ONE (01:30)
[2022-05-16] MEDS ORDERED: AZITHROMYCIN INJECTION 500 MG in NS (IVPB) 250 ML IV ONE (01:30)
[2022-05-16 01:40] LABS: BASOPHILS % (AUTO) 1 % (0-10); EOSINOPHILS # (AUTO) 0.8 10^3/uL (0.0-0.3); EOSINOPHILS % (AUTO) 10 % (0-10); HEMATOCRIT 40 % (40-54); HEMOGLOBIN 13.8 g/dL (13.3-17.7); LYMPHOCYTES # (AUTO) 1.9 10^3/uL (1.0-4.0); LYMPHOCYTES % (AUTO) 24 % (12-44); MEAN CORPUSCULAR HEMOGLOBIN 36 pg (25-34); MEAN CORPUSCULAR HGB CONC 34 g/dL (32-36); MEAN CORPUSCULAR VOLUME 104 fL (80-99); MEAN PLATELET VOLUME 10.7 fL (9.0-12.2); MONOCYTES # (AUTO) 0.7 10^3/uL (0.0-1.0); MONOCYTES % (AUTO) 9 % (0-12); NEUTROPHILS # (AUTO) 4.4 10^3/uL (1.8-7.8); NEUTROPHILS % (AUTO) 56 % (42-75); PLATELET COUNT 190 10^3/uL (130-400); WHITE BLOOD COUNT 7.8 10^3/uL (4.3-11.0)
[2022-05-16 01:51] LABS: ALBUMIN 4.2 GM/DL (3.2-4.5)
[2022-05-16 01:52] LABS: CHLORIDE 108 MMOL/L (98-107); POTASSIUM 3.5 MMOL/L (3.6-5.0); SODIUM 142 MMOL/L (135-145)
[2022-05-16 01:53] LABS: CALCIUM 9.2 MG/DL (8.5-10.1)
[2022-05-16 01:54] LABS: FIBRIN DEGRADATION PRODUCTS 2.05 UG/ML (0.00-0.49); GLUCOSE 92 MG/DL (70-105); PROTHROMBIN TIME PATIENT 13.6 SEC (12.2-14.7); TOTAL PROTEIN 6.9 GM/DL (6.4-8.2)
[2022-05-16 01:55] LABS: CARBON DIOXIDE 19 MMOL/L (21-32)
[2022-05-16 01:56] LABS: BILIRUBIN,TOTAL 0.4 MG/DL (0.1-1.0)
[2022-05-16 01:57] LABS: ALKALINE PHOSPHATASE 39 U/L (40-136)
[2022-05-16 01:58] LABS: CREATININE SERUM 0.92 MG/DL (0.60-1.30); GFR ESTIMATED 85
[2022-05-16 01:59] LABS: BUN/CREATININE RATIO 23
[2022-05-16 02:00] LABS: MAGNESIUM 1.8 MG/DL (1.6-2.4)
[2022-05-16 02:01] LABS: ALANINE AMINOTRANSFERASE 16 U/L (0-55); CREATINE KINASE 240 U/L (30-200)
[2022-05-16 02:08] LABS: CREATINE KINASE MB 4.5 NG/ML (<6.6)
--- NOTE | 2022-05-16 02:14 | ED Respiratory ---
General Chief Complaint: Respiratory Problems Stated Complaint: SOA Nursing Triage Note: Pt presents with c/o respiratory distress x2-3 days. He states that it has really worsened since approx noon on 05/15/22. He reports seeing his primary doctor on 05/14 and receiving symbicort inhaler, he's also used his rescue inhaler several times. Pt denies chest pain, states he's been coughing up some clear phlegm. Pt denies COPD hx, states he had a similar episode and was hospitalized approx 10 years ago. Source: patient History of Present Illness Date Seen by Provider: May 16, 2022 Time Seen by Provider: 01:13 Initial Comments PT ARRIVES VIA POV FROM HOME WITH SON C/O SHORTNESS OF BREATH X 3 DAYS, AND IS MUCH WORSE SINCE NOON TODAY ( 05/15/22 ) SYMPTOMS MUCH WORSE SINCE NOON TODAY NO CHEST PAIN OR PAIN WITH BREATHING NO FEVER NO SWELLING IN LEGS/FEET OR PAIN IN CALVES STATES HE HAS HAD A PRODUCTIVE COUGH WITH CLEAR SPUTUM FOR 2 MONTHS, BUT HAS HAD GRADUAL INCREASE IN CHRONIC COUGH OVER THE LAST YEAR. HE HAS ALSO HAD A PROGRESSIVE WORSENING OF DYSPNEA ON EXERTION OVER THE LAST COUPLE OF YEARS. HE HAS BEEN ADMITTED A COUPLE OF TIMES IN THE PAST WITH PNEUMONIA, AND THIS FEELS THE SAME. HE WAS DISMISSED HOME ON OXYGEN AFTER LAST ADMIT WITH PNEUMONIA, BUT DID NOT NEED IT AFTER ABOUT A WEEK, AND NO LONGER HAS OXYGEN AT HOME SINCE THEN. HE DENIES DX OF COPD, BUT STATES HE HAS BEEN DX WITH ASTHMA. STATES HE HAS NOT USED ANY KIND OF INHALER FOR A FEW YEARS. HE DOES NOT SEE A METAL TRADES INSTRUCTOR HE HAS NEVER SMOKED, BUT HE DOES DRINK ALCOHOL DAILY. PT WAS SEEN BY HIS PCP, DR. STEPHEN, YESTERDAY FOR THIS PROBLEM HE HAD NEGATIVE COVID AND FLU TESTS AT THAT TIME. NO OTHER TESTS WERE DONE HE WAS PRESCRIBED SYMBICORT BID. HE ALSO HAS BEEN PRESCRIBED ALBUTEROL RESCUE INHALER, WHICH HE HAS USED 3-4 TIMES TODAY. HE WAS ALSO PRESCRIBED PREDNISONE YESTERDAY, BUT TOLD HIM NOT TO FILL IT IF HE DIDN'T NEED IT. SO HE DID NOT PICK IT UP. PCP:DR. STEPHEN Allergies and Home Medications Allergies Coded Allergies: Penicillins (Verified Allergy, Unknown, A CHILD, 05/23/18) Patient Home Medication List Home Medication List Reviewed: Yes Albuterol Sulfate (Ventolin Hfa) 1 Puff Puff, 2 PUFF IH Q4H PRN for SHORTNESS OF BREATH, (Reported) Entered as Reported by: FRANCI PICKENS on 07/04/17 1502 Enalapril Maleate (Enalapril Maleate) 20 Mg Tablet, 20 MG PO DAILY, (Reported) Entered as Reported by: ADITYA WHALEN on 07/03/17 0443 Hydrocodone Bit/Acetaminophen (Lortab 5 Mg Tablet) 1 Each Tablet, 1-2 TAB PO Q4H Prescribed by: OBEY LUNA on 05/26/18 1314 Levofloxacin (Levaquin) 500 Mg Tablet, 500 MG PO DAILY Prescribed by: OBEY LUNA on 05/26/18 1314 Prednisone (Prednisone) 20 Mg Tab, 20 MG PO UD Prescribed by: OBEY LUNA on 05/26/18 1314 Review of Systems Review of Systems Constitutional: no symptoms reported; No chills, No diaphoresis, No dizziness, No fever, No malaise, No weakness EENTM: no symptoms reported Respiratory: see HPI, cough, dyspnea on exertion, orthopnea, phlegm, short of breath, wheezing Cardiovascular: no symptoms reported; No chest pain, No edema, No palpitations, No syncope, No vascular heart diseas Gastrointestinal: no symptoms reported Genitourinary: no symptoms reported Musculoskeletal: no symptoms reported Skin: no symptoms reported Psychiatric/Neurological: No Symptoms Reported Hematologic/Lymphatic: No Symptoms Reported Immunological/Allergic: no symptoms reported Past Oesynyt-Ciible-Waaooe Hx Patient Social History Tobacco Use?: No Smoking Status: Never a Smoker Smokeless Tobacco Frequency: Never a User Use of E-Cig and/or Vaping dev: No Use of E-Cig and/or Vaping Too: Never a User Substance use?: No Alcohol Use?: Yes Alcohol type: Hard Liquor, Wine Alcohol Frequency: Daily Immunizations Up To Date PED Vaccines UTD: Yes Seasonal Allergies Seasonal Allergies: Yes Past Medical History Surgeries: Yes (DETACHED RETINA; LEFT HIP REPLACEMENT 2015) Joint Replacement, Orthopedic Respiratory: Yes Asthma, Pneumonia Currently Using CPAP: No Currently Using BIPAP: No Cardiac: Yes Hypertension Neurological: No Sexually Transmitted Disease: No HIV/AIDS: No Genitourinary: Yes Kidney Stones Gastrointestinal: No Musculoskeletal: Yes (LEFT HIP REPLACEMENT) Arthritis Endocrine: No HEENT: Yes (DETACHED RETINA, GLASSES; NASAL POLYPS) Loss of Vision: Bilateral Hearing Impairment: Denies Cancer: No Psychosocial: No Integumentary: Yes (ON BACK-LITTLE BUMPS) Blood Disorders: No Adverse Reaction/Blood Tranf: No (N/A) Family Medical History No Pertinent Family Hx, Asthma, Lung Disease Physical Exam Vital Signs - First Documented Capillary Refill : Less Than 3 Seconds Height: 6'1.00" Weight: 253lbs. 3.0oz. 114.929884mv; 30.00 BMI Method:Stated General Appearance: WD/WN, moderate distress (SITTING ON SIDE OF BED, LEANING FORWARD, DYSPNEIC WITH AUDIBLE WHEEZING) HEENT: PERRL/EOMI, normal ENT inspection Neck: normal inspection Respiratory: respiratory distress, decreased breath sounds, accessory muscle use, wheezing, other (DECREASED AERATION IN ALL LUNG LORA, WITH DIFFUSE END EXPIRATORY WHEEZING) Cardiovascular: regular rate, rhythm, no edema, no JVD, no murmur Gastrointestinal: non tender, soft Extremities: normal inspection, no pedal edema, normal capillary refill Neurologic/Psychiatric: pulper operator II-XII nml as tested, no motor/sensory deficits, alert, oriented x 3 Skin: normal color, warm/dry Focused Exam Sepsis Stage: Ruled Out Reason for ruling out sepsis: DOES NOT MEET CRITERIA Possible Source: Pulmonary Lactate Level 05/16/22 01:35: Lactic Acid Level 1.69 Time of Focused Exam: 02:30 Respiratory: No Accessory Muscle Use, No Respiratory Distress, Other (MUCH IMPROVED AERATION, NO LONGER DYSPNEIC, AND DECREASED WHEEZING. NO LONGER IN TRIPOD POSITION) Cardiovascular: Regular Rate, Rhythm, No Murmur Capillary Refill: Less Than 3 Seconds Lactic Acid Level Laboratory Tests Test 05/16/22 01:35 Lactic Acid Level 1.69 MMOL/L (0.50-2.00) Within 3hrs of presentation: Admin fluids, Admin ABX, Blood cultures prior to ABX's, Focus exam, Lactate level Progress/Results/Core Measures Suspected Sepsis SIRS Temperature: Pulse: 81 Respiratory Rate: 24 Laboratory Tests 05/16/22 01:29: White Blood Count 7.8 Blood Pressure 152 /84 Mean: 106 05/16/22 01:35: Lactic Acid Level 1.69 Laboratory Tests 05/16/22 01:29: Creatinine 0.92, INR Comment 1.0, Platelet Count 190, Total Bilirubin 0.4 Results/Orders Lab Results Laboratory Tests Test 05/16/22 01:29 05/16/22 01:35 05/16/22 02:07 Range/Units White Blood Count 7.8 4.3-11.0 10^3/uL Red Blood Count 3.85 L 4.30-5.52 10^6/uL Hemoglobin 13.8 13.3-17.7 g/dL Hematocrit 40 40-54 % Mean Corpuscular Volume 104 H 80-99 fL Mean Corpuscular Hemoglobin 36 H 25-34 pg Mean Corpuscular Hemoglobin Concent 34 32-36 g/dL Red Cell Distribution Width 12.4 10.0-14.5 % Platelet Count 190 130-400 10^3/uL Mean Platelet Volume 10.7 9.0-12.2 fL Immature Granulocyte % (Auto) 0 % Neutrophils (%) (Auto) 56 42-75 % Lymphocytes (%) (Auto) 24 12-44 % Monocytes (%) (Auto) 9 0-12 % Eosinophils (%) (Auto) 10 0-10 % Basophils (%) (Auto) 1 0-10 % Neutrophils # (Auto) 4.4 1.8-7.8 10^3/uL Lymphocytes # (Auto) 1.9 1.0-4.0 10^3/uL Monocytes # (Auto) 0.7 0.0-1.0 10^3/uL Eosinophils # (Auto) 0.8 H 0.0-0.3 10^3/uL Basophils # (Auto) 0.0 0.0-0.1 10^3/uL Immature Granulocyte # (Auto) 0.0 0.0-0.1 10^3/uL Erythrocyte Sedimentation Rate 3 0-30 MM/HR Prothrombin Time 13.6 12.2-14.7 SEC INR Comment 1.0 0.8-1.4 Activated Partial Thromboplast Time 30 24-35 SEC D-Dimer 2.05 H 0.00-0.49 UG/ML Sodium Level 142 135-145 MMOL/L Potassium Level 3.5 L 3.6-5.0 MMOL/L Chloride Level 108 H 98-107 MMOL/L Carbon Dioxide Level 19 L 21-32 MMOL/L Anion Gap 15 H 5-14 MMOL/L Blood Urea Nitrogen 21 H 7-18 MG/DL Creatinine 0.92 0.60-1.30 MG/DL Estimat Glomerular Filtration Rate 85 BUN/Creatinine Ratio 23 Glucose Level 92 70-105 MG/DL Calcium Level 9.2 8.5-10.1 MG/DL Corrected Calcium 9.0 8.5-10.1 MG/DL Magnesium Level 1.8 1.6-2.4 MG/DL Total Bilirubin 0.4 0.1-1.0 MG/DL Aspartate Amino Transf (AST/SGOT) 20 5-34 U/L Alanine Aminotransferase (ALT/SGPT) 16 0-55 U/L Alkaline Phosphatase 39 L 40-136 U/L Total Creatine Kinase 240 H 30-200 U/L Creatine Kinase MB 4.5 <6.6 NG/ML Myoglobin 112.6 H 10.0-92.0 NG/ML Troponin I < 0.028 <0.028 NG/ML C-Reactive Protein High Sensitivity 0.10 0.00-0.50 MG/DL B-Type Natriuretic Peptide 39.5 <100.0 PG/ML Total Protein 6.9 6.4-8.2 GM/DL Albumin 4.2 3.2-4.5 GM/DL Lactic Acid Level 1.69 0.50-2.00 MMOL/L Influenza Type A (RT-PCR) Not Detected Not Detecte Influenza Type B (RT-PCR) Not Detected Not Detecte SARS-CoV-2 RNA (RT-PCR) Not Detected Not Detecte My Orders Orders - JEAN-PIERRE BEATTY DO Ed Iv/Invasive Line Start (05/16/22:13) Ekg Tracing (05/16/22:13) O2 (05/16/22:13) Monitor-Rhythm Ecg Trace Only (05/16/22:13) Chest 1 View, Ap/Pa Only (05/16/22:13) Bnp Chela (05/16/22:13) Cbc With Automated Diff (05/16/22:13) Comprehensive Metabolic Panel (05/16/22:13) Creatine Kinase (05/16/22:13) Creatine Kinase Mb (05/16/22:13) Hs C Reactive Protein (05/16/22:13) Fibrin Degradation Products (05/16/22:13) Magnesium (2/11/23 01:13) Protime With Inr (05/16/22 01:13) Partial Thromboplastin Time (05/16/22 01:13) Erythrocyte Sedimentation Rate (05/16/22 01:13) Myoglobin Serum (05/16/22 01:13) Troponin I Chela (05/16/22 01:13) Covid 19 Inhouse Test (05/16/22 01:13) Influenza A And B By Pcr (05/16/22 01:13) Isolation Central Supply Req (05/16/22 01:13) Arterial Blood Gas (05/16/22:26) Lactic Acid Analyzer (05/16/22:26) Blood Culture (05/16/22:) Albuterol Pre-Mix Nebs (Rt) (Proventil (05/16/22:) Albuterol/Ipra Inhalation Soln (Duoneb I (05/16/22:30) Dexamethasone Injection (Decadron Injec (05/16/22:30) Rt Request For Service (05/16/22:) Methylprednisolone Sod Succ (Solu-Medrol (05/16/22:26) Svn Small Volume Nebulizer (05/16/22:) Svn Small Volume Nebulizer (05/16/22:) Sputum Culture (05/16/22:) Vital Signs Adult Sepsis Patie Q15M (05/16/22:26) Ceftriaxone 1 Gm Pre-Mix (Rocephin 1 Gm (05/16/22:30) Azithromycin Injection (Zithromax Inject (05/16/22:30) Ct Angio Chest W (R/O Pe) (05/16/22 02:12) Iohexol Injection (Omnipaque 350 Mg/Ml 1 (05/16/22 04:00) Received Contrast (Hold Metformin- Contr (05/16/22 04:00) Ns (Ivpb) (Sodium Chloride 0.9% Ivpb Bag (05/16/22 04:00) Medications Given in ED Vital Signs/I&O 05/16/22 05/16/22 05/16/22 01:15 01:15 02:12 Temp 36.7 Pulse 81 Resp 24 B/P (MAP) 152/84 (106) Pulse Ox 95 84 96 O2 Delivery Nasal Cannula Nasal Cannula Nasal Cannula O2 Flow Rate 3.00 3.00 3.00 Capillary Refill : Less Than 3 Seconds Blood Pressure Mean: 106 Progress Note : Progress Note PPE WORN COVID AND FLU TESTING DONE SEPSIS PROTOCOL INITIATED O2 SAT ON ARRIVAL 84% ON ROOM AIR. PLACED ON O2 AT 4/NC AND O2 SATS UP TO MID 90'S UNABLE TO OBTAIN ABG'S AFTER MULTIPLE ATTEMPTS. GIVEN: -IV FLUIDS -SOLU-MEDROL -HOUR LONG NEB TREATMENT -ANTIBIOTICS MUCH IMPROVEMENT WITH THE ABOVE MEASURES. MARKED DELAY IN OBTAINING CT REPORT: [id number]--CALLED FOOD PREP WORKER, SHE STATES SHE WILL CONTACT [facility] TO EXPEDITE READING 06--SPOKE WITH FOOD PREP WORKER AGAIN, STILL NO REPORT FROM [facility], REQUESTED THAT SHE CONTACT [facility] TO EXPEDITE READING. 06--SPOKE WITH FOOD PREP WORKER AGAIN, SHE STATES [facility] IS NOT THERE YET, BUT TECH AT [facility] WILL CONTACT RADIOLOGIST AND REQUEST THAT PT'S CT BE READ FIRST. NO DETERIORATION IN PT'S CONDITION DURING ER STAY. VITALS STABLE. NO FEVER NO TACHYCARDIA NO HYPOTENSION NO COUGH NOTED AT ANY TIME DURING ER STAY REVIEWED PRIOR RECORDS INCLUDING ER VISITS, ADMITS, H&P'S, CONSULTS, TESTS/PROCEDURES, DISCHARGE SUMMARIES. REVIEWED ALL TEST RESULTS, NEED FOR ADMIT, AND PT IS AGREEABLE TO PLAN, ALSO DISCUSSED WITH PT'S SON. ECG Initial ECG Impression Date: May 16, 2022 Initial ECG Impression Time: 01:22 Initial ECG Rate: 80 Initial ECG Rhythm: Normal Sinus Initial ECG Impression: Nonspecific Changes Diagnostic Imaging Comments CXR--RLL INFILTRATE/ATELECTASIS, PENDING RADIOLOGIST REVIEW CT CHEST ANGIOGRAM--PER RADIOLOGIST REPORT AT 0657 FINDINGS: Vascular: There are no filling defects within the the visualized pulmonary arteries. Limited evaluation of the bilateral upper lobe distal branches secondary to patient respiratory motion. There are vascular calcifications of the aorta and coronary vessels without aneurysm. Thyroid: There are subcentimeter right thyroid nodules which require no followup. Mediastinum: Heart size is normal without significant pericardial effusion. No suspicious lymphadenopathy. Lungs and airways: The lungs are clear without consolidation, pleural effusion, or pneumothorax. The airways are normal. Upper abdomen: The subphrenic structures are normal. Musculoskeletal: Degenerative changes of the spine without suspicious osseous lesion or compression fracture. Chronic rib fractures. IMPRESSION: 1. No findings of pulmonary embolus within the visualized pulmonary arteries. Limited evaluation of the bilateral upper lobe pulmonary arteries secondary to patient respiratory motion. 2. No other acute abnormality in the chest. Reviewed: Reviewed by Me Departure Communication (Admissions) 3888--SPOKE WITH DR. KELLOGG, HOSPITALIST, ACCEPTS PT FOR ADMIT. Impression Primary Impression: Acute respiratory failure Additional Impressions: Acute asthma exacerbation Elevated d-dimer HX OF HTN Disposition: ADMITTED INPATIENT Condition: Improved Admissions Decision to Admit Reason: Admit from ER (General) Decision to Admit/Date: May 16, 2022 Time/Decision to Admit Time: 07:00 Departure-Patient Inst. Referrals: THAIS STEPHEN MD (PCP/Family) Primary Care Physician JEAN-PIERRE BEATTY DO May 16, 2022 02:14
[2022-05-16 02:15] LABS: ERYTHROCYTE SEDIMENTATION RATE 3 MM/HR (0-30)
[2022-05-16] MEDS ORDERED: HOLD METFORMIN - RECEIVED CONTRAST 20 ML VIAL IV SCH (04:00)
[2022-05-16] MEDS ORDERED: NS 100 ML (IVPB) BAG IV ONE (04:00)
[2022-05-16] MEDS ORDERED: IOHEXOL 350 MG/ML 100 ML (OMNIPAQUE 350) VIAL IV ONE (04:00)
--- NOTE | 2022-05-16 06:55 | Diagnostic Imaging Report ---
EXAMINATION: CT angiography of the chest. TECHNIQUE: Contrast enhanced thin section helical images were obtained through the chest with intravenous contrast timed for the optimal opacification of the arterial structures per CTA protocol. Post-processing, reconstructions and interpretation of angiographic images of the vessels was performed. 3D MIP reconstructions were performed and reviewed. All CT scans use one or more of the following dose optimizing techniques: automated exposure control, MA and/or KvP adjustment based on a patient size and exam type, or iterative reconstruction. HISTORY: DYSPNEA, ELEVATED D-DIMER COMPARISON: None available. FINDINGS: Vascular: There are no filling defects within the the visualized pulmonary arteries. Limited evaluation of the bilateral upper lobe distal branches secondary to patient respiratory motion. There are vascular calcifications of the aorta and coronary vessels without aneurysm. Thyroid: There are subcentimeter right thyroid nodules which require no followup. Mediastinum: Heart size is normal without significant pericardial effusion. No suspicious lymphadenopathy. Lungs and airways: The lungs are clear without consolidation, pleural effusion, or pneumothorax. The airways are normal. Upper abdomen: The subphrenic structures are normal. Musculoskeletal: Degenerative changes of the spine without suspicious osseous lesion or compression fracture. Chronic rib fractures. IMPRESSION: 1. No findings of pulmonary embolus within the visualized pulmonary arteries. Limited evaluation of the bilateral upper lobe pulmonary arteries secondary to patient respiratory motion. 2. No other acute abnormality in the chest. Dictated by: Dictated on workstation # [id number]
--- NOTE | 2022-05-16 07:22 | Diagnostic Imaging Report ---
INDICATION: DYSPNEA. TECHNIQUE: Single view chest 3:21 AM. CORRELATION STUDY: 05/23/2018 FINDINGS: Heart size borderline enlarged but generally stable. Vasculature within normal limits. The costophrenic angles incompletely imaged. The visualized lungs are clear with no consolidating infiltrate. There is no significant effusion or pneumothorax. IMPRESSION: 1. Negative appearing single view chest. Dictated by: Dictated on workstation # [id number]
[2022-05-16 08:42] LABS: PROTHROMBIN TIME PATIENT 13.2 SEC (12.2-14.7)
[2022-05-16] MEDS ORDERED: THIAMINE INJECTION 100 MG, FOLIC ACID INJECTION 1 MG, MAGNESIUM SULFATE 2 GM, VITAMIN M... IV SCH ×5 (09:00)
[2022-05-16] MEDS ORDERED: ACETAMINOPHEN 500 MG TAB (TYLENOL) PO PRN (09:00)
[2022-05-16] MEDS ORDERED: LORazepam INJ 2 MG/ML (ATIVAN) VIAL IM/IV PRN (09:15)
[2022-05-16] MEDS ORDERED: 1/2 NS IV SOLUTION 1,000 ML IV PRN (09:15)
[2022-05-16] MEDS ORDERED: D5 1/2 NS W/KCL 20 MEQ/L 1,000 ML IV SCH (09:15)
[2022-05-16] MEDS ORDERED: D5 1/2 NS 1000 ML IV SOLUTION 1,000 ML IV PRN (09:15)
[2022-05-16] MEDS ORDERED: SENNA W/DOCUSATE (SENOKOT S) TABLET PO PRN (09:15)
[2022-05-16] MEDS ORDERED: LORazepam INJ 2 MG/ML (ATIVAN) VIAL IV PRN (09:15)
[2022-05-16] MEDS ORDERED: LORazepam 1 MG (ATIVAN) TAB PO PRN (09:15)
[2022-05-16] MEDS ORDERED: ANTACID SUSP 30 ML UDC (MYLANTA) PO PRN (09:15)
[2022-05-16] MEDS ORDERED: ONDANSETRON 4 MG/2 ML (SDV) Z0FRAN IV PRN (09:15)
[2022-05-16] MEDS ORDERED: ONDANSETRON 4 MG (ZOFRAN) ORAL DISSOLVE TAB SL PRN (09:15)
[2022-05-16] MEDS ORDERED: VASOPRESSIN INJECTION 20 UNIT in NS (IVPB) 100 ML IV SCH (09:30)
[2022-05-16] MEDS ORDERED: CATHETER FLUSH 10 ML SYR IV PRN (09:30)
[2022-05-16] MEDS ORDERED: EPINEPHrine 1 MG INJECTION 4 MG in NS (IVPB) 248 ML IV SCH (09:30)
[2022-05-16] MEDS ORDERED: NOREPINEPHRINE 8 MG/250 ML 250 ML IV SCH (09:30)
[2022-05-16] MEDS: methylPREDNISolone 125 MG (Solu-MEDROL) VIAL IV SCH ×3 (09:38→20:10)
--- NOTE | 2022-05-16 11:32 | History & Physical ---
AIDANGUS 05/16/22 11:32am: History of Present Illness History of Present Illness Reason for visit/HPI Patient is a 77 year old male with a past history of asthma, HTN, and nasal polyps who presented to the ED on 05/15 with chief complaint of worsening dyspnea. The patient states that they have had a cough since this fall with approximately a cup worth of clear sputum production daily. The patient reports that for the last three days he had progressively worsening dyspnea that improved yesterday morning but then worsened later that evening. The patient and his family noticed significant wheezing. The patient followed with his PCP Dr. Mchugh yesterday where he was found to be covid and flu negative. He was prescribed a rescue inhaler 180mcg Q4H PRN and symbicort BID, patient could not remember the dose. He was also prescribed a steroid which the patient did not fill. The patient reports that he has had similar episodes in 2011 and 2017 that resolved with duoneb, steroids, and antibiotics. He saw a cable television program director in [place] after his episode in 2011, and with a cable television program director at [facility] in 2018, both of which the patient report said it was most likely an asthma attack. Following his hospital stay in 2018, he was discharged on 2L home O2 which he reportedly was able to discontinue after a week, and he currently does not use any home O2. The patient measures his O2 sat at home regularly and says it is normally at 97%. The patient is laying comfortably in bed on exam with son at the bedside. He reports that his symptoms have improved greatly since admission, with only a small amount of dyspnea on exertion. He also reports that his cough has improved as well since admission. He is still having noticeable wheezing on ausculation b/l, but according to the patient and son this is a significant improvement from yesterday. Patient has no other complaints. Date of Admission May 16, 2022 at 06:56 Date Seen by a Provider: May 16, 2022 Time Seen by a Provider: 11:15 I consulted on this patient on 05/16/22 11:20 Attending Physician Thais Mchugh MD Admitting Physician Admitting Physician: Trey Cruz MD Attending Physician: Trey Cruz MD Consult Allergies and Home Medications Allergies Coded Allergies: Penicillins (Verified Allergy, Unknown, A CHILD, 05/23/18) Patient Home Medication List Home Medication List Reviewed: Yes Albuterol Sulfate (Ventolin Hfa) 1 Puff Puff, 2 PUFF IH Q4H PRN for SHORTNESS OF BREATH, (Reported) Entered as Reported by: FRANCI PICKENS on 07/04/17 1502 Enalapril Maleate (Enalapril Maleate) 20 Mg Tablet, 20 MG PO DAILY, (Reported) Entered as Reported by: ADITYA WHALEN on 07/03/17 0443 Hydrocodone Bit/Acetaminophen (Lortab 5 Mg Tablet) 1 Each Tablet, 1-2 TAB PO Q4H Prescribed by: OBEY LUNA on 05/26/18 1314 Levofloxacin (Levaquin) 500 Mg Tablet, 500 MG PO DAILY Prescribed by: OBEY LUNA on 05/26/18 1314 Prednisone (Prednisone) 20 Mg Tab, 20 MG PO UD Prescribed by: OBEY LUNA on 05/26/18 1314 Past Obrtxnr-Ajdjzd-Sognuq Hx Patient Social History Tobacco Use?: No Smoking Status: Never a Smoker Smokeless Tobacco Frequency: Never a User Use of E-Cig and/or Vaping dev: No Use of E-Cig and/or Vaping Too: Never a User Substance use?: No Alcohol Use?: Yes Alcohol type: Wine Alcohol Frequency: Daily Immunizations Up To Date Date of Influenza Vaccine: Jan 10, 2018 PED Vaccines UTD: Yes Date of Pneumonia Vaccine: May 05, 2015 Seasonal Allergies Seasonal Allergies: Yes Current Status Advance Directives: Yes Advance Directive Location: Home Communicates: Verbally Primary Language: Slovak Preferred Spoken Language: Slovak Is interpretation needed?: No Sensory deficits: Vision impairment Implanted or Applied Medical D: Orthopedic hardware Past Medical History Surgeries: Joint Replacement, Orthopedic Asthma, Pneumonia Currently Using CPAP: No Currently Using BIPAP: No Hypertension Sexually Transmitted Disease: No HIV/AIDS: No Kidney Stones Arthritis Loss of Vision: Bilateral Hearing Impairment: Denies Blood Disorders: No Adverse Reaction/Blood Tranf: No (N/A) Family Medical History No Pertinent Family Hx, Asthma, Lung Disease Review of Systems Constitutional: No chills, No fever, No weakness EENTM: No hearing loss, No hoarseness Respiratory: cough, short of breath (Improving), wheezing (b/l) Cardiovascular: No chest pain, No edema, No syncope Gastrointestinal: No abdominal pain, No constipation, No diarrhea, No nausea, No vomiting Genitourinary: No dysuria, No hematuria Musculoskeletal: No back pain, No muscle pain Skin: No hx of skin cancer, No lesions, No lumps Psychiatric/Neurological: Denies Numbness, Denies Weakness Physical Exam Vital Signs Vital Signs - First Documented Capillary Refill : Less Than 3 Seconds Height, Weight, BMI Height: 6'1.00" Weight: 253lbs. 3.0oz. [id number]; 28.04 BMI Method:Stated General Appearance: No Apparent Distress, WD/WN HEENT: PERRL/EOMI, Pharynx Normal, Moist Mucous Membranes Neck: Non Tender, Supple Respiratory: No Respiratory Distress, Wheezing (b/l) Cardiovascular: Regular Rate, Rhythm, No Edema, Normal Peripheral Pulses Gastrointestinal: Non Tender, Soft Rectal: Deferred Back: No Vertebral Tenderness Extremity: Non Tender, No Pedal Edema Neurologic/Psychiatric: Alert, Oriented x3 Skin: Normal Color, Warm/Dry Lymphatic: No Adenopathy Assessment/Plan Assessment and Plan Asthma exacerbation continue solu-medrol 125 mg Q6H IV Albuterol 5mg Q4H PRN Maintaining O2 saturation in high 90s on 3L of oxygen, will begin titrating down CXR and CTA normal Elevated D-dimer Measured at 2.05 CTA was negative for any signs of PE HTN BP has been stable since admission Patient checks BP at home, currently around his baseline Continue home dose of enalapril 20 mg PO daily Elevated lactic acid No mottling or other signs of hypoperfusion Measured again and is WNL SCDs and ambulation for DVT prophylaxis Daily ETOH use Patient endorses drinking 2 glasses of wine daily Monitor for withdrawals Planning on transfer to 4th floor this afternoon Copy Copies To 1: THAIS MCHUGH MD, KATELYN M MD 05/16/22 12:19pm: Allergies and Home Medications Allergies Coded Allergies: Penicillins (Verified Allergy, Unknown, A CHILD, 05/23/18) Patient Home Medication List Albuterol Sulfate (Ventolin Hfa) 1 Puff Puff, 2 PUFF IH Q4H PRN for SHORTNESS OF BREATH, (Reported) Entered as Reported by: FRANCI PICKENS on 07/04/17 1502 Enalapril Maleate (Enalapril Maleate) 20 Mg Tablet, 20 MG PO DAILY, (Reported) Entered as Reported by: ADITYA Kevin WHALEN on 07/03/17 0443 Hydrocodone Bit/Acetaminophen (Lortab 5 Mg Tablet) 1 Each Tablet, 1-2 TAB PO Q4H Prescribed by: OBEY LUNA on 05/26/18 1314 Levofloxacin (Levaquin) 500 Mg Tablet, 500 MG PO DAILY Prescribed by: OBEY LUNA on 05/26/18 1314 Prednisone (Prednisone) 20 Mg Tab, 20 MG PO UD Prescribed by: OBEY LUNA on 05/26/18 1314 Assessment/Plan Assessment and Plan Acutely worsening shortness of breath. He has had a cough and sputum production for at least a few weeks and over this past week has gotten worse. He was seen by his primary care physician Dr. Mchugh and prescribed steroids and inhalers which she just started 2 days ago. Despite this he continued to worsen and he was wheezing significantly. His son noticed it through the phone and decided to take him in to the emergency room for evaluation. He was found to have an acute asthma exacerbation and was requiring supplemental oxygen to maintain his sats above 90. He was treated with IV steroids and hour-long breathing treatment and while still wheezing is breathing much better. He has historically seen a cable television program director and had PFTs but these have not been done for quite a while. Encouraged outpatient follow-up with pulmonology once out of the hospital. We will continue IV steroids while admitted. I did review his chest x-ray and CT chest and there is no evidence of pneumonia. Nor does he have a leukocytosis or fevers so I will discontinue antibiotics at this time. We will keep him on MAT protocol. And I will transfer him out of the ICU this afternoon. Admission Diagnosis Admission Status: Inpatient Order (span 2 midnights) Reason for Inpatient Admission: acute respiratory failure needing IV abx Copy Copies To 1: THAIS MCHUGH MD Supervisory-Addendum Brief Verification & Attestation Participated in pt care: history, MDM, physical Personally performed: exam, history, MDM, supervision of care Care discussed with: Medical Student Procedures: n/a Results interpretation: Verified all documentation Verification and Attestation of Medical Student E/M Service A medical student performed and documented this service in my presence. I reviewed and verified all information documented by the medical student and made modifications to such information, when appropriate. I personally performed the physical exam and medical decision making. Trey Cruz, May 16, 2022,12:14 GUS BERMUDEZ May 16, 2022 11:32 am TREY CRUZ MD May 16, 2022 12:19 pm
[2022-05-16] MEDS: CATHETER FLUSH 10 ML SYR IV SCH ×2 (13:40→20:10)
[2022-05-16 13:46] LABS: BILIRUBIN,URINE NEGATIVE (NEGATIVE); CLARITY,URINE CLEAR; COLOR,URINE YELLOW; GLUCOSE, URINE (UA) NEGATIVE (NEGATIVE); KETONES,URINE TRACE (NEGATIVE); LEUKOCYTE ESTERASE ,URINE NEGATIVE (NEGATIVE); NITRITE,URINE NEGATIVE (NEGATIVE); PROTEIN,URINE TRACE (NEGATIVE)
[2022-05-16 13:58] LABS: BACTERIA,URINE NEGATIVE /HPF; RBC,URINE RARE /HPF; SQUAMOUS EPITHELIAL CELL,UR RARE /HPF; WBC,URINE RARE /HPF
[2022-05-16 14:06] VITALS: BP_SYST 158; BP_SYST 185; BP_DIAS 76; BP_DIAS 89
[2022-05-16 15:21] VITALS: BP 158/76
[2022-05-16] MEDS ORDERED: RT-ALBUTEROL SULF 2.5 MG/3 ML PRE-MIX VIAL INH PRN (15:30)
[2022-05-16 15:43] VITALS: BP 170/82
[2022-05-16] MEDS ORDERED: hydrALAZINE (APESOLINE) 20 MG/ML VIAL IV PRN (16:15)
[2022-05-16 19:49] VITALS: BP 152/72
[2022-05-16] MEDS: RT-ALBUTEROL SULF 2.5 MG/3 ML PRE-MIX VIAL INH SCH (20:18)
[2022-05-16 23:36] VITALS: BP 152/70
[2022-05-17] MEDS ORDERED: cefTRIAXone 1 GM PRE-MIX 50 ML IV SCH (02:00)
[2022-05-17] MEDS: methylPREDNISolone 125 MG (Solu-MEDROL) VIAL IV SCH ×2 (02:58→08:57)
[2022-05-17] MEDS: RT-ALBUTEROL SULF 2.5 MG/3 ML PRE-MIX VIAL INH SCH ×4 (03:26→23:09)
[2022-05-17 03:37] VITALS: BP 128/65
[2022-05-17] MEDS ORDERED: AZITHROMYCIN INJECTION 500 MG in NS (IVPB) 250 ML IV SCH (04:00)
[2022-05-17] MEDS: CATHETER FLUSH 10 ML SYR IV SCH ×3 (06:05→22:41)
[2022-05-17 07:55] VITALS: BP 133/66
[2022-05-17] MEDS: lisINopril 20 MG (PRINIVIL) TABLET PO SCH (08:57)
[2022-05-17 11:46] VITALS: BP 138/32
--- NOTE | 2022-05-17 12:04 | Progress Note ---
Subjective Date Seen by a Provider: May 17, 2022 Time Seen by a Provider: 10:15 Subjective/Events-last exam Patient is laying comfortably in bed this morning, no family at bedside. Patient reports that he feels his breathing has imrpoved. He's noticed less wheezing and states that he is longer short of breath when getting up to use the restroom or walk around his room. He also states that hes been able to take deeper breaths and that his cough has continued to improve as well. On auscultation the patient's wheezing has improved from yesterday, and he appears to be doing much better today. The patient has no new complaints. Review of Systems General: No Fatigue, No Malaise Pulmonary: Dyspnea (on exertion, improving), Cough (improving) Cardiovascular: No: Chest Pain, Edema Gastrointestinal: No: Nausea, Vomiting Genitourinary: No Dysuria, No Hematuria Musculoskeletal: No: neck pain, back pain Neurological: No: Weakness, Numbness Focused Exam Lactate Level 05/16/22 01:35: Lactic Acid Level 1.69 05/16/22 08:15: Lactic Acid Level 2.21*H 05/16/22 10:09: Lactic Acid Level 1.93 Time of Focused Exam: 02:30 Objective Exam Last Set of Vital Signs Vital Signs Date Time Temp Pulse Resp B/P (MAP) Pulse Ox O2 Delivery O2 Flow Rate FiO2 05/17/22 11:46 37.2 93 19 138/32 (67) 94 Nasal Cannula 3.00 Capillary Refill : Less Than 3 Seconds I&O Intake and Output 05/17/22 00:00 Intake Total 1540 ml Output Total 275 ml Balance 1265 ml Intake Oral 1490 ml IV Total 50 ml Output Urine Total 275 ml # Voids 2 # Bowel Movements 2 Daily Weight Change No General: Alert, Oriented X3 HEENT: Atraumatic, PERRLA Neck: Supple Lungs: Other (wheezing b/l, improved from yesterday) Heart: Regular Rate, No Murmurs Abdomen: Soft, No Tenderness Extremities: No Edema, Normal Pulses Skin: No Rashes, No Significant Lesion Neuro: Normal Speech, Sensation Intact Results Lab Laboratory Tests 05/16/22 13:34: Urine Color YELLOW, Urine Clarity CLEAR, Urine pH 6.0, Urine Specific [place] 1.020, Urine Protein TRACEH, Urine Glucose (UA) NEGATIVE, Urine Ketones TRACEH, Urine Nitrite NEGATIVE, Urine Bilirubin NEGATIVE, Urine Urobilinogen 0.2, Urine Leukocyte Esterase NEGATIVE, Urine RBC (Auto) NEGATIVE, Urine RBC RARE, Urine WBC RARE, Urine Squamous Epithelial Cells RARE, Urine Crystals NONE, Urine Bacteria NEGATIVE, Urine Casts NONE, Urine Mucus NEGATIVE, Urine Culture Indicated NO Microbiology 05/16/22 MRSA Screen - Final, Complete MRSA not isolated Assessment/Plan Assessment/Plan Assess & Plan/Chief Complaint Asthma exacerbation Transition from solu-medrol 125 mg Q6H IV to prednisone 40mg PO daily Albuterol 2.5 mg Q6H INH and an additional 2.5mg albuterol Q4H PRN Maintaining O2 saturation in high 90s on 3L of oxygen, will begin titrating down CXR and CTA normal Elevated D-dimer Measured at 2.05 CTA was negative for any signs of PE HTN BP elevated last night, systolic in the 160s-170s, improved to 130s after 5mg Hydralazine IV Continue Hydralazine 5mg IV Q6H PRN Transition from enalapril 20mg PO daily to lisinopril 40mg PO daily Elevated lactic acid No mottling or other signs of hypoperfusion Measured again and is WNL SCDs and ambulation for DVT prophylaxis Daily ETOH use Patient endorses drinking 2 glasses of wine daily Monitor for withdrawals Clinical Quality Measures Admission Status Admission Dx Asthma exacerbation continue solu-medrol 125 mg Q6H IV Albuterol 5mg Q4H PRN Maintaining O2 saturation in high 90s on 3L of oxygen, will begin titrating down CXR and CTA normal Elevated D-dimer Measured at 2.05 CTA was negative for any signs of PE HTN BP has been stable since admission Patient checks BP at home, currently around his baseline Continue home dose of enalapril 20 mg PO daily Elevated lactic acid No mottling or other signs of hypoperfusion Measured again and is WNL SCDs and ambulation for DVT prophylaxis Daily ETOH use Patient endorses drinking 2 glasses of wine daily Monitor for withdrawals Planning on transfer to 4th floor this afternoon GUS BERMUDEZ May 17, 2022 12:04
[2022-05-17 15:51] VITALS: BP 141/65
[2022-05-17 19:23] VITALS: BP 151/70
[2022-05-18 00:37] VITALS: BP 122/65
[2022-05-18] MEDS: RT-ALBUTEROL SULF 2.5 MG/3 ML PRE-MIX VIAL INH SCH ×2 (03:16→06:40)
[2022-05-18 04:39] VITALS: BP 129/69
[2022-05-18] MEDS: CATHETER FLUSH 10 ML SYR IV SCH (06:30)
[2022-05-18] MEDS ORDERED: predniSONE 20 MG TAB PO SCH (07:00)
[2022-05-18 08:18] VITALS: BP 160/66
[2022-05-18] MEDS: lisINopril 20 MG (PRINIVIL) TABLET PO SCH (08:36)
[2022-05-18] MEDS ORDERED: LISI40TA9 PO (08:37)
[2022-05-18] MEDS ORDERED: PRD50T PO (08:40)
[2022-05-18] MEDS ORDERED: CLOB15CR2 TOP (08:40)
[2022-05-18] MEDS ORDERED: DOXY100C5 PO (08:41)
[2022-05-18] MEDS ORDERED: BUDE10.2 PO (08:42)
[2022-05-18] MEDS ORDERED: FLT11013 PO (08:43)
[2022-05-18] MEDS ORDERED: FLUT16SP22 NSEACH (08:43)
[2022-05-18] MEDS ORDERED: LYCO1CAP2 PO (08:44)
[2022-05-18] MEDS ORDERED: PREVAGEN PO (08:44)
[2022-05-18 12:25] VITALS: BP 143/73
--- NOTE | 2022-05-18 20:29 | Discharge Summary ---
Discharge Summary Hospital Course Problems/Dx: (1) Acute asthma exacerbation Status: Acute (2) Acute respiratory failure Status: Acute Qualifiers: Qualified Codes: J96.01 - Acute respiratory failure with hypoxia Hospital Course Date of Admission: May 16, 2022 at 06:56 Admission Diagnosis : Acute asthma exacerbation Family Physician/Provider: Stephane Stephen MD Date of Discharge: 05/18/22 Discharge Diagnosis: Acute asthma exacerbation Hospital Course: Brock Lagunas is a 77 year old male who was admitted with acute asthma exacerbation. He was treated with steroids and breathing treatments. He was initially requiring supplemental oxygen, but required none at the time of discharge. He will complete a course of steroids as an outpatient. He will continue his inhalers. He should follow up with his PCP in about a week. He was discharged home in stable condition. Labs and Pending Lab Test: Microbiology 05/16/22 MRSA Screen - Final, Complete MRSA not isolated 05/16/22 Blood Culture - Preliminary, Resulted No growth Home Meds Active Reported Fruit & Vegetable Daily Sftgel (Lycopene/Lut Xt/Fruit Extracts) 5 Mg-6 Mg-150 Mg Capsule 1 Each PO DAILY [Prevagen] 1 Ea PO DAILY Flovent Hfa 110 mcg (Fluticasone Propionate) 110 Mcg/Actuation Aero 1 Puff PO DAILY Fluticasone Propionate 50 Mcg/Actuation [place].susp 1 [place] NSEACH DAILY Symbicort 160-4.5 Mcg Inhaler (Budesonide/Formoterol Fumarate) 160 Mcg-4.5 Mcg/Actuation Hfa.aer.ad 1 Puff PO BID FILLED 05-14-2022 #1, ONLY USED ONE TIME BEFORE ADMISSION Prednisone 50 Mg Tab 50 Mg PO DAILY FILLED 05-14-2022 #5/5 DAY SUPPLY, DID NOT START THIS MEDICATION PRIOR TO ADMISSION Clobetasol Propionate 0.05 % Cream..g. 1 Applic TOP DAILY PRN Lisinopril 40 Mg Tablet 40 Mg PO DAILY Ventolin Hfa (Albuterol Sulfate) 1 Puff Puff 2 Puff IH Q4H PRN 1 PUFF = 90 MCG Assessment/Pt Instructions See instructions Discharge Planning: >30 minutes discharge planning Discharge Instructions Discharge Diet: No Restrictions Activity as Tolerated: Yes Discharge Physical Examination Vital Signs Vital Signs Date Time Temp Pulse Resp B/P (MAP) Pulse Ox O2 Delivery O2 Flow Rate FiO2 05/18/22 12:25 37.1 71 18 143/73 (96) 95 Room Air 05/18/22 06:40 1.00 General Appearance: No Apparent Distress, WD/WN Respiratory: No Respiratory Distress, Wheezing (mild) Cardiovascular: Regular Rate, Rhythm, No Murmur Gastrointestinal: Normal Bowel Sounds, Soft Extremity: Normal Inspection, No Pedal Edema Skin: Normal Color, Warm/Dry Neurologic/Psychiatric: Alert, Normal Mood/Affect Allergies: Coded Allergies: Penicillins (Verified Allergy, Unknown, A CHILD, 05/23/18) Copy Copies To 1: STEPHANE STEPHEN MD Discharge Summary Date of Admission May 16, 2022 at 06:56 Date of Discharge May 18, 2022 at 13:25 Discharge Date: May 18, 2022 Discharge Time: 13:25 Admission Diagnosis Acute asthma exacerbation Discharge Diagnosis (1) Acute asthma exacerbation Status: Acute (2) Acute respiratory failure Status: Acute Qualifiers: Qualified Codes: J96.01 - Acute respiratory failure with hypoxia EDDIE IBRAHIM MD May 18, 2022 20:27
== END 2022-05-18 13:25 | disposition home or self-care (01) | DRG 189 ==
LOC: EDUNIT# 01:11 → ER 01:13 → ICU 06:56 → 4TH 13:40
PROVIDERS: ADMIT Family Medicine; ATTEND Internal Medicine
DX: J96.00 Acute respiratory failure, unspecified whether with hypoxia or hypercapnia (principal); J45.901 Unspecified asthma with (acute) exacerbation; I10 Essential (primary) hypertension; M19.91 Primary osteoarthritis, unspecified site; H54.3 Unqualified visual loss, both eyes; Z96.642 Presence of left artificial hip joint; Z79.52 Long term (current) use of systemic steroids; Z88.0 Allergy status to penicillin
CPT/HCPCS: 36415; 71045; 71275; 80053; 80320; 81000; 82550; 82553; 82947; 83605; 83735; 83874; 83880; 84145; 84484; 85025; 85379; 85610; 85652; 85730; 86141; 87040; 87081; 87389; 87636; 93005; 93041; 94640; 94644; 94760; 94761